=== PATIENT | female | born 1950 | race Caucasian/White ===

== ENCOUNTER → 2018-03-01 10:17 | Outpatient (CLI) | payer MEDICARE, OTHER, SELFPAY ==
[2017-03-14 11:32] VITALS: BMI 34.2
[2018-03-01 12:26] LABS: AST(SGOT) 20 U/L (15-37); Alanine Aminotransfer ALT/SGPT 28 U/L (13-56); Cholesterol 164 mg/dL (200); High Density Lipoprotein 39 mg/dL; T4 Total, Thyroxin 11.7 ug/dL (4.8-13.9); Thyroid Stim Hormone (TSH) 0.88 uIU/mL (0.358-3.74); Triglycerides 152 mg/dL; Very Low Density Lipoprotein 30 mg/dL (5-40)
[2018-03-06 09:35] LABS: ALB/GLOB Ratio 0.9 RATIO (0.9-2.4); Albumin, Serum 3.5 g/dL (3.2-5.0); Alkaline Phosphatase 116 U/L (45-117); Anion Gap 8 (5-15); BUN 19 mg/dL (7-18); BUN/Creat Ratio 23.7 RATIO (10-20); Chloride 105 mmol/L (98-107); EST Glomerular Filtration Rate 76 mL/min (>60); Est Glom Filt Rate - Afr Amer 92 mL/min (>60); Globulin 3.9 g/dL (2.2-4.2); Glucose 84 mg/dL (74-106); Potassium 4.3 mmol/L (3.5-5.1); Protein, Total 7.4 g/dL (6.4-8.2); Sodium Level 143 mmol/L (136-145)
--- OUTSIDE RECORDS SUMMARY | 2018-05-06 04:57 | XMS RPT_ITS ---
:1950 Author Organization [facility] Care Team Providers Name Role Phone Jolie Norman Attending Unavailable Jolie Norman Primary Care Unavailable Lucian Perez Attending Unavailable Jolie Norman Referring Unavailable Jolie Norman Primary Care Unavailable PROBLEMS PROBLEMS DATE TYPE CONDITION / CODE ATTENDING STATUS SOURCE 03/14/2017 Unknown I49.1 - Atrial Moodispajoey, Lucian Active [place] [facility] depolarization / Hospital I49.1(ICD-10) Repository 03/14/2017 Unknown I49.3 - Ventricular Moodispaw, Lucian Active [place] premature [facility] depolarization / Hospital I49.3(ICD-10) Repository 03/14/2017 Unknown E78.5 - Moodispaw, Lucian Active [place] Hyperlipidemia, Community unspecified / Hospital E78.5(ICD-10) Repository 03/14/2017 Unknown I10 - Essential Moodispaw, Lucian Active [place] (primary) Community hypertension / Hospital I10(ICD-10) Repository PROCEDURES PROCEDURES No Procedure Records FoundRESULTS RESULTS LIPID PROFILE Collected: 03/01/2018 Status: F Source: [place] 10:18 AM [facility] REPOSITORY Order Comment: ADD ON BMP FROM 03/01/18 TYPE CODE TESTS RESULT OUT OF RANGE REFERENCE UNITS LAB L501.4900 200 mg/dL Normal CHOL 164 Result Comment: <200 mg/dL Desirable 200-240 mg/dL Borderline >240 mg/dL High Risk LAB L501.5000 mg/dL Normal TRIG 152 Result Comment: The drugs N-Acetylcysteine and Metamizole may falsely depress this assay. Serum Triglycerides Reference Interval Normal <150 mg/dL Borderline high 150 - 199 mg/dL High 200 - 499 mg/dL Very High > or = 500 mg/dL LAB L501.6400 mg/dL Low HDL 39 Result Comment: The drugs N-Acetylcysteine and Metamizole may falsely depress this assay. Reference Range HDL <40 mg/dL Low HDL Cholesterol HDL >or= 60 mg/dL High HDL Cholesterol LAB L501.6500 0-130 mg/dL Normal LDL 95 LAB L501.6600 5-40 mg/dL Normal VLDL 30 Performed By: #### L500.4100, L501.4100, L501.4405, L501.9310, L501.9520, L500.4050 #### [facility] [address] [place], [address] AST(SGOT) Collected: 03/01/2018 Status: F Source: [place] 10:18 AM [facility] [place] TYPE CODE TESTS RESULT OUT OF RANGE REFERENCE UNITS LAB L501.4100 15-37 U/L Normal AST 20 Performed By: #### L500.4100, L501.4100, L501.4405, L501.9310, L501.9520, L500.4050 #### [facility] [address] [place], [place], [address] ALANINE AMINOTRANSFERAS Collected: 03/01/2018 Status: F Source: [place] (SGPT) 10:18 AM [facility] [place] TYPE CODE TESTS RESULT OUT OF RANGE REFERENCE UNITS LAB L501.4405 13-56 U/L Normal ALT 28 Performed By: #### L500.4100, L501.4100, L501.4405, L501.9310, L501.9520, L500.4050 #### [facility] [address] [place], [address] T4 TOTAL, THYROXIN Collected: 03/01/2018 Status: F Source: [place] 10:18 AM [facility] [place] Order Comment: ADD ON BMP FROM 03/01/18 TYPE CODE TESTS RESULT OUT OF RANGE REFERENCE UNITS LAB L501.9310 4.8-13.9 ug/dL T4 Normal THYROXIN 11.7 Performed By: #### L500.4100, L501.4100, L501.4405, L501.9310, L501.9520, L500.4050 #### [facility] [address] [place], [address] THYROID STIM HORMONE Collected: 03/01/2018 Status: F Source: [place] (TSH) 10:18 AM [facility] [place] Order Comment: ADD ON BMP FROM 03/01/18 TYPE CODE TESTS RESULT OUT OF RANGE REFERENCE UNITS LAB L501.9520 0.358-3.74 uIU/mL Normal TSH 0.88 Performed By: #### L500.4100, L501.4100, L501.4405, L501.9310, L501.9520, L500.4050 #### [facility] [address] [place], [address] COMPREHENSIVE METABOLIC Collected: 03/01/2018 Status: F Source: [place] PROFIL 10:18 AM [facility] [place] Order Comment: ADD ON BMP FROM 03/01/18 TYPE CODE TESTS RESULT OUT OF RANGE REFERENCE UNITS LAB L501.4100 15-37 U/L Normal AST 20 LAB L501.4405 13-56 U/L Normal ALT 28 LAB L501.0100 74-106 mg/dL Normal GLU 84 Result Comment: Please note revised GLUCOSE reference range effective 2017. LAB L501.1000 7-18 mg/dL High BUN 19 LAB L501.1100 0.55-1.02 mg/dL Normal CREAT,SERUM 0.80 Result Comment: The validity of the calculated GFR AND GFRAA in patients over 70 years has not been determined. Clinical correlation is essential. LAB L501.1110 >60 mL/min Normal EST GFR 76 Result Comment: Non- GFR Calc LAB L501.1115 >60 mL/min Normal EST GFR - AA 92 Result Comment: GFR Calc LAB L501.1300 10-20 RATIO High BUN/CRE 23.7 LAB L501.1500 6.4-8.2 g/dL T Normal PROT 7.4 LAB L501.1800 3.2-5.0 g/dL Normal ALB 3.5 LAB L501.1950 2.2-4.2 g/dL Normal GLOB 3.9 LAB L501.2000 0.9-2.4 RATIO Normal A/G 0.9 LAB L501.2200 8.5-10.1 mg/dL CA Normal 9.0 LAB L501.4305 45-117 U/L Normal ALK P 116 LAB L501.4600 0.20-1.00 mg/dL T Normal BILI 0.40 LAB L501.5300 136-145 mmol/L NA Normal 143 LAB L501.5600 3.5-5.1 mmol/L K Normal 4.3 LAB L501.5900 98-107 mmol/L CL Normal 105 LAB L501.6100 21.0-32.0 mmol/L Normal CO2 30.0 LAB L501.6200 5-15 Normal GAP 8 Performed By: #### L500.4100, L501.4100, L501.4405, L501.9310, L501.9520, L500.4050 #### [facility] [address] [place], [place], [address] CARDIOLOGY VISIT Observed: 03/14/2017 Status: F Source: [place] REPORT 11:59 AM [facility] [place] [facility] [address] [place] [address] OFFICE VISIT Date of Service: 03/14/17 MR#: [id number] Acct: [id number] Name: CELESTINA SERRANO Rep #: [id number] : 1950 Provider: Lucian Perez MD Age/Sex: 66/F [place] [facility] [place]: Signed HPI 1 Y FU: Details: CELESTINA SERRANO, is a 66 F who presents to the office today for for outpatient cardiovascular follow-up of her history of underlying PACs and PVCs superimposed on hyperlipidemia and hypertension. She notes since her visit of approximately 03/11/2016 she has been doing well. She has not complained of ongoing palpitations or rapid rates. She has had no episodes of near syncope or syncope. At the same time she remains active. She states she cares for her brother who undergoes hemodialysis. She has had no concerns of symptoms suspicious for angina pectoris and there has been no episodes compatible CHF or pulmonary edema. She did have her lipids checked recently. Overall they appear to be under good control. As you recall she had a transthoracic echocardiogram on 12/31/2008. At that time the left ventricle was normal with an LVEF of 60% with mild left atrial enlargement and mild MR and trivial TR and an estimated RV systolic pressure 22 mmHg. She had a stress test performed on 07/29/2008. According to the stress test (stress echocardiogram) this was considered negative for evidence of stress-induced ischemia. She also had a Holter monitor performed on 11/20/2008 which was performed by her PCP. At that time she had sinus tachycardia with a port of 3 beat run of SVT and occasional PVCs. She states overall she has done well on her medical management. Intake Vital Signs03/14/17 Height 5 ft 03/14/17 Weight: 175 lb 3 oz 03/14/17 Body Mass Index (BMI) 34.2 03/14/17 Blood Pressure 138/60 Intake Visit Reasons: 1 Y FU Allergies NKDA Allergy (Uncoded 03/14/17 11:32) NKDA Medications amlodipine 5 mg tablet 5 mg PO QDAY 03/08/17 [History Confirmed 03/10/17] aspirin 81 mg tablet,delayed release 81 mg PO QDAY 03/08/17 [History Confirmed 03/10/17] cholecalciferol (vitamin D3) 2,000 unit tablet 2,000 unit PO QDAY tab 03/08/17 [History Confirmed 03/10/17] levothyroxine 88 mcg tablet 88 mcg PO QDAY tab 03/08/17 [History Confirmed 03/10/17] lisinopril 40 mg tablet 40 mg PO QDAY 03/08/17 [History Confirmed 03/10/17] metoprolol succinate ER 100 mg tablet,extended release 24 hr 100 mg PO QDAY tab 03/08/17 [History Confirmed 03/10/17] omeprazole 20 mg capsule,delayed release 20 mg PO QDAY PRN 03/08/17 [History Confirmed 03/10/17] pravastatin 40 mg tablet 40 mg PO QHS 03/08/17 [History Confirmed 03/10/17] Ejection fraction %: 60 to 64 [facility] Medical History Hyperlipidemia (Acute) Hypertension (Chronic) Dizziness and giddiness (Acute) Tachycardia (Acute) Chest pain, precordial (Acute) Premature atrial contractions (Acute) Premature ventricular contraction (Acute) Palpitations (Acute) Fatigue (Acute) Family history of CVA (Acute) Family history of hypertension (Acute) Hypothyroidism (Acute) IBS (irritable bowel syndrome) (Acute) Family History Mother CVA (cerebral vascular accident) Brother Hypertension Social History Smoking Status: Never smoker alcohol intake: never ROS Const Const: Negative for fatigue, weakness, weight gain, weight loss, frequent falls or excessive sweating Eyes Eyes: Negative for change in vision, blurry vision or transient loss of vision ENT ENT: Negative for dizziness, Negative for balance problems Cardio Chest Pain: No Palpitations: Positive for No Edema: None Muscle aches with walking: None Resp Respiratory: Negative for SOB with activity or SOB at rest GI GI: Negative vomiting or vomiting blood/hematemesis : Negative for hematuria Musc Musc: Negative for balance problems, muscle aches/ myalgia, muscle weakness or joint pain Skin Skin: Negative non-healing lesions or rash Neuro Neuro: Negative for weakness, Negative for blurry vision, Negative for dizziness, Negative for lightheadedness, Negative for frequent falls, Negative for orthostatic symptoms Jamal Hematologic/Lymphatic: Negative for easy bleeding Endo Endo: Negative for fatigue or excessive sweating Psych Psych: Negative for anxiety or depression Allergy Allergy/Immunology: Negative for hives, Negative for rash Cardiology Exam Const Appearance: cooperative, healthy appearing, comfortable, no acute distress, well developed and well groomed Nutritional Appearance: overweight Orientation: alert, awake and oriented x3 Head Head: normal to inspection, normocephalic and atraumatic Ears: hearing grossly normal bilaterally Nose: external nose normal Face and Sinus: face symmetric Mouth: oral mucosae normal Teeth and gingiva: dentition normal Eyes General: appearance normal, both eyes and all related structures Eyelids: eyelids normal Conjunctivae: conjunctivae normal Pupils: PERRL EOM: EOM intact bilaterally Neck Neck: normal visual inspection and full ROM Carotids: normal carotid upstroke Chest Chest inspection: normal inspection of the chest and symmetric chest movement Auscultation: Bilateral: Clear to Auscultation Cardio Palpation: normal PMI Rate: regular rate Rhythm: regular rhythm Heart sounds: S1 normal and S2 normal GI GI: normal to inspection, soft, no hepatosplenomegaly and bowel sounds present Neuro General: alert, awake and oriented x3 Skin Skin: no rashes or lesions noted Extremities Pulses: Normal: Right Femoral Pulse, Left Femoral Pulse, Right Radial Pulse, Left Radial Pulse Lower Extremity Edema: None: Bilateral Psych Psychological: normal affect Assessment AND Plan 1. Premature atrial beat I49.1 Plan She appears to be doing well at this time with respect to her underlying ectopy. She will notify the office of any concerns. 2. Premature ventricular beat I49.3 Plan She appears be doing well with respect to her underlying ventricular ectopy. Again she will notify the office of any concerns. Otherwise she will continue her medical therapy with respect to her beta-blockers. 3. Hyperlipidemia, unspecified hyperlipidemia type E78.5 Plan Her lipid history was reviewed. She appears to be doing reasonably well. She will continue medical management and follow-up. 4. Essential hypertension I10 Plan Overall her blood pressure appears to be under reasonably good control. She will continue her current medical therapy and follow-up. Plan Detail Additional Comments She will be scheduled for an outpatient visit in approximately 1 year unless needed sooner. Thank you for allowing me to participate in the care of your patient. Please don't hesitate to call if any issues arise. This note was generated using a voice recognition system and there may be incorrect words, spelling or punctuation that were not noted when reviewing the office note prior to saving. Follow Up 1 Year ([facility]) Coding Level of Care Code Off vis,est,level 3 Diagnoses Premature atrial beat I49.1 Premature ventricular beat I49.3 Hyperlipidemia, unspecified hyperlipidemia type E78.5 Hyperlipidemia type: unspecified Essential hypertension I10 Hypertension type: essential hypertension 03/14/17 1159 <Electronically signed by Lucian Perez MD> Date Lucian Perez MD Cosigner Signature: Date (if applicable) CC: Jolie Norman MD ALLERGIES ALLERGIES DATE TYPE / CODE NAME / REACTION SEVERITY SOURCE CODE 03/14/2017 Miscellaneous NKDA NKDA Unknown [place] Allergy/[id number]([facility]) Hospital Repository ENCOUNTERS ENCOUNTERS ADMIT/DISCHARGE ACCOUNT ADMITTING ENCOUNTER LOCATION SOURCE NUMBER CLASS 03/01/2018 [id number] Ambulatory [place] 8 [facility] ing:MFPLAB Repository 03/14/2017/ [id number] Ambulatory BMSBuilding:B [place] 8 8 [facility] Repository PAYERS PAYERS ENCOUNTER GUARANTOR PAYER SUBSCRIBER SOURCE 03/01/2018 CELESTINA M Primary CELESTINA M [place] [id number] Insurance:MEDICARE MOWRERDOB: [facility] [place] PART A [facility] [id number] Number: Repository [id number]: [phone] [id number] [phone] () Date:2018-03-01 03/01/2018 Secondary CELESTINA M [place] Insurance:MUTUAL OF MOWRERDOB: [facility] Number: [id number] [id number] Repository Date:[id number] [address]JH: 03/01/2018 Tertiary NOT GIVENUNK [place] Insurance:SELF PAY [facility] Number: Effective Repository Date:2018-03-01 03/14/2017 CELESTINA Peterson Primary CELESTINA M [place] [id number] Insurance:MEDICARE MOWRERDOB: [facility] PART A [facility] [id number] Number: Repository [id number]: [phone] [id number] [phone] () Date:2017-01-22 03/14/2017 Secondary CELESTINA M [place] Insurance:MUTUAL OF MOWRERDOB: [facility] Number: [id number] [id number] Repository Date:[id number], [place] [address]AY: 03/14/2017 Tertiary NOT GIVENUNK [place] Insurance:SELF PAY [facility] Number: Effective Repository Date:2017-01-22
== END ==
PROVIDERS: Family Provider Family Medicine; PCP Family Medicine; Visit Provider Family Medicine
DX: I10 Essential (primary) hypertension (principal); E78.00 Pure hypercholesterolemia, unspecified; E03.9 Hypothyroidism, unspecified
CPT/HCPCS: 36415; 80053; 80061; 84436; 84443; 84450; 84460

== ENCOUNTER → 2018-03-27 10:39 | Outpatient (CLI) | payer MEDICARE, OTHER, SELFPAY ==
[2018-03-15 13:37] VITALS: BMI 34.5
--- NOTE | 2018-03-27 10:44 | BI_ITS ---
MAMMOGRAPHY - BILATERAL SCREENING REASON FOR EXAM: Female, 67 years old. Routine annual screening examination. PERTINENT HISTORY: Grandmother with breast cancer. Aunt with breast cancer. Chronic bilateral breast discharge. TECHNIQUE: Digital bilateral breast rojas (3D mammographic acquisition) in the CC and MLO projections. 2-D mediolateral oblique (MLO) and craniocaudad (CC) views of both breasts were obtained. CAD: Full Field Digital Mammography with Computer Added Detection was performed. COMPARISON: Comparison is made with prior study dated February 23, 2017 and January 26, 2016. FINDINGS: Breast Composition: The breasts are heterogeneously dense, which may obscure small masses. There are no dominant masses or suspicious calcifications. Stable small bilateral axillary lymph nodes. No other significant abnormalities are identified. There has been no significant change since the prior study. BI/SCREENING MAMM (CAD), BILAT IMPRESSION: Stable bilateral screening mammogram. Yearly follow-up mammogram recommended. (A) ASSESSMENT CATEGORY: BIRADS Category 2: Benign. A letter regarding these results will be sent to the patient by the facility within 30 days. Approximately 10% of breast cancers are not detected by mammography. A normal mammogram should not delay biopsy of a clinically suspicious abnormality. [id number] Electronically Signed: Rodrigo Lemus MD at 12:55 EST , Service support ,
== END ==
PROVIDERS: Family Provider Family Medicine; PCP Family Medicine; Visit Provider Family Medicine
DX: Z12.31 Encounter for screening mammogram for malignant neoplasm of breast (principal)
CPT/HCPCS: 77063; 77067

== ENCOUNTER → 2018-11-06 12:18 | Outpatient (CLI) | payer MEDICARE, OTHER, SELFPAY ==
[2018-03-15 13:37] VITALS: BMI 34.5
--- NOTE | 2018-11-06 12:20 | STEWCON_ITS ---
Reason For Study: CHEST PAIN ON EXERTION Stress Results Protocol: Ej Protocol WITH DEFINITY Maximum Predicted HR: 153 bpm Target HR: 130 bpm % Maximum Predicted HR: 95 % DurationHeart Rate Stage (mm:ss) (bpm) BP Comment BASELINE 71 144/741 CC DEFINITY STAGE 1 3:00 129 138/82 STAGE 2 2:00 146 / 2 CC DEFINITY RECOVERY 95 140/801 CC DEFINITY Stress Duration: 5:00 mm:ss Maximum Stress HR: 146 bpm METS: 7 Baseline Echocardiogram Findings Stress Echo Wall motion Data Resting WM Intermediate WM Stress WM Resting Wall Motion Wall Motion Stress Anterio-Basal: Normal. All segments Hyperkinetic. Lateral-Basal: Normal. Ejection Fraction 65 %. Posterior-Basal: Normal. Infero-Basal: Hypokinetic. Basal inferoseptal: Normal. Basal anteroseptal: Normal. Mid-Anterior : Normal. Mid-Lateral : Normal. Mid-Posterior: Normal. Mid-Inferior: Hypokinetic. Mid-inferoseptal : Normal. Mid-anteroseptal : Normal. Anterior [place] : Normal. Inferior [place] : Normal. Lateral [place] : Normal. Septall [place] : Normal. Ejection Fraction 55 %. Stress Results Heart rate response: Appropriate Blood pressure response: Resting hypertension-appropriate response Arrhythmias: Rare PVC during exercise Functional capacity: Average Stopped secondary to: Fatigue. EKG Data The baseline ECG displays normal sinus rhythm. Exercise ECG: No obvious ECG changes. Symptoms with Stress No complaint of chest discomfort during exercise or recovery. Interpretation Summary Technically difficult study Contrast injection performed Based upon the real-time and digital acquired 2D echocardiographic and contrast enhanced images at rest and status post stress there is the appearance of hypokinesis of the basal inferior and mid inferior segments at rest which status post stress appeared to improve, thus, being potentially compatible with an area of previous myocardial injury with subsequent findings compatible with myocardial viability, although, false positive resting regional wall motion abnormalities based upon the technically difficult study cannot necessarily be excluded. Ordering Physician: Jolie Norman M.D. Referring Physician: Jolie Norman Performed By: Cielo Friedman, MEAGAN, RVT
== END ==
PROVIDERS: Family Provider Family Medicine; PCP Family Medicine; Referring Provider Family Medicine; Visit Provider Family Medicine
DX: R07.9 Chest pain, unspecified (principal)
CPT/HCPCS: 93017; 93350; Q9957; A4216; C8928

== ENCOUNTER 2018-11-28 09:54 | Day surgery (SDC) | payer MEDICARE, OTHER, SELFPAY ==
[2018-03-15 13:37] VITALS: BMI 34.5
[2018-11-14 14:13] VITALS: BMI 34.2
--- NOTE | 2018-11-14 15:21 | RAD_ITS ---
STUDY: X-RAY CHEST REASON FOR EXAM: Female, 68 years old. Chest pain TECHNIQUE: PA and lateral COMPARISON: None. FINDINGS: The lungs are clear and expanded. There is no demonstrated pleural abnormality. Normal size heart. Normal mediastinum and kris. Normal visualized pulmonary arteries. Normal visualized aortic arch and descending thoracic aorta. Dorsal spine demonstrates mild spondylosis. Normal visualized ribs, clavicles, and shoulders. There is no demonstrated abnormality of the visualized soft tissue structures of the upper abdomen. RAD/Chest PA and Lateral IMPRESSION: No acute cardiopulmonary pathology Electronically Signed: Koko Hook MD at 22:09 EDT , Service support ,
[2018-11-14 16:28] LABS: Hematocrit 41.2 % (37-47); Hemoglobin 12.4 g/dL (12.0-15.0); Mean Corp Hgb Conc 30.1 g/dL (32-36); Mean Corpuscular Volume 89.6 fL (81-99); Mean Platelet Vol. 9.8 fl (6.2-12.0); Platelet Count 395 K/mm3 (150-450); RBC Distribution Width SD 49.3 fl (35.1-43.9); White Blood Count 10.5 K/mm3 (4.4-11.0)
[2018-11-14 16:43] LABS: International Normalized Ratio 1.1; Prothrombin Time (Protime)PT. 14.3 SECONDS (11.7-14.9)
[2018-11-14 16:44] LABS: Partial Thromboplast Time 30.8 Seconds (24.1-36.2)
[2018-11-14 16:51] LABS: Anion Gap 8 (5-15); BUN 21 mg/dL (7-18); BUN/Creat Ratio 19.8 RATIO (10-20); Calcium,Total 9.2 mg/dL (8.5-10.1); Chloride 109 mmol/L (98-107); Creatinine, Serum 1.06 mg/dL (0.55-1.02); EST Glomerular Filtration Rate 55 mL/min (>60); Est Glom Filt Rate - Afr Amer 66 mL/min (>60); Glucose 96 mg/dL (74-106); Potassium 3.8 mmol/L (3.5-5.1); Sodium Level 145 mmol/L (136-145)
[2018-11-27 09:29] VITALS: BMI 34.2
--- NOTE | 2018-11-28 07:56 | HP.PCM_ITS ---
Problem List (1) Abnormal stress echocardiogram Status: Acute (2) Chest pain, precordial Status: Resolved (3) Premature atrial contractions Status: Chronic (4) Premature ventricular contraction Status: Chronic (5) Hyperlipidemia Status: Chronic Qualifiers: (6) Essential hypertension Status: Chronic (7) Dizziness and giddiness Status: Acute (8) Fatigue Status: Acute History and Physical Date of Admission: 11/28/18 [facility] [address] [place] [address] OFFICE VISIT Date of Service: 11/14/18 MR#: [id number] Acct: [id number] Name: CELESTINA SERRANO Rep #: [id number] : 1950 Provider: Nadia Sanchez Age/Sex: 68/F Location: [facility] [place] Status: Signed HPI HPI History of Present Illness Details: This is a 68-year-old female that presents here today for an updated history and physical for an upcoming heart catheterization for an abnormal stress test. Patient was last seen in our office in February 2018. She does have a history of palpitations, hyperlipidemia and hypertension. Stress echocardiogram in October 2018 demonstrated rest and status post stress there is the appearance of hypokinesis of the basal inferior and mid inferior segments at rest which status post stress appeared to improve, thus, being potentially compatible with an area of previous myocardial injury with subsequent findings compatible with myocardial viability, although, false positive resting regional wall motion abnormalities based upon the technically difficult study cannot necessarily be excluded. Patient's stress test was ordered by her primary care doctor for dizziness. She states that she was extremely diz[place] and [place]ig[place] She does not have any chest discomfort. She does not have any worsening shortness of breath. She does not have any palpitations. She does not have any lower extremity edema. She is very anxious over this test. 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 Is patient in pain?: No Allergies No Known Allergies Allergy (Verified 11/14/18 14:14) Medications amlodipine 5 mg tablet 5 mg PO QDAY 03/08/17 [History Confirmed 11/14/18] aspirin 81 mg tablet,delayed release 81 mg PO QDAY 03/08/17 [History Confirmed 11/14/18] cholecalciferol (vitamin D3) 2,000 unit tablet 2,000 unit PO QDAY tab 03/08/17 [History Confirmed 11/14/18] levothyroxine 88 mcg tablet 88 mcg PO QDAY tab 03/08/17 [History Confirmed 11/14/18] lisinopril 40 mg tablet 40 mg PO QDAY 03/08/17 [History Confirmed 11/14/18] metoprolol succinate ER 100 mg tablet,extended release 24 hr 100 mg PO QDAY tab 03/08/17 [History Confirmed 11/14/18] pravastatin 40 mg tablet 40 mg PO QHS #90 tab 03/08/18 [Rx Confirmed 11/14/18] omeprazole 20 mg capsule,delayed release 20 mg PO QDAY 03/15/18 [History Confirmed 11/14/18] clopidogrel 75 mg tablet 75 mg PO DAILY #30 tab 11/14/18 [Rx Confirmed 11/14/18] [facility] Medical History (Updated 11/14/18 @ 15:07 by KELIN Lopez) Essential hypertension (Chronic) Hyperlipidemia (Chronic) Dizziness and giddiness (Resolved) Tachycardia (Resolved) Chest pain, precordial (Resolved) Premature atrial contractions (Chronic) Premature ventricular contraction (Chronic) Palpitations (Resolved) Fatigue (Resolved) Hypothyroidism (Chronic) IBS (irritable bowel syndrome) (Chronic) Family history of CVA (Resolved) Family history of hypertension (Resolved) Family History Mother CVA (cerebral vascular accident) Brother Hypertension Social History (Updated 11/14/18 @ 15:09 by KELIN Lopez) Smoking Status: Never smoker alcohol intake: never ROS Const Const: Negative for fatigue, weakness, fever(s) or headache(s) Eyes Eyes: Negative for blind spots, loss of peripheral vision or transient loss of vision ENT ENT: Negative for headache(s), dizziness, tinnitus or Nosebleed/epistaxis Cardio Chest Pain: No Palpitations: No Edema: None Muscle aches with walking: None Resp Respiratory: Negative for SOB with activity, SOB at rest, SOB orthopnea\SOB lying down or Cough GI GI: Negative nausea, vomiting, heartburn or vomiting blood/hematemesis : Negative for hematuria Musc Musc: Negative for muscle aches/ myalgia Neuro Neuro: Negative for dizziness, lightheadedness, near syncope, syncope, orthostatic symptoms, headache(s) or weakness Jamal Hematologic/Lymphatic: Negative for easy bleeding Endo Endo: Negative for fatigue Cardiology Exam Const Appearance: cooperative, healthy appearing, comfortable, no acute distress, well developed and well groomed Nutritional Appearance: overweight Orientation: alert, awake and oriented x3 Head Head: normal to inspection, normocephalic and atraumatic Ears: hearing grossly normal bilaterally Nose: external nose normal Face and Sinus: face symmetric Mouth: oral mucosae normal Teeth and gingiva: dentition normal Eyes General: appearance normal, both eyes and all related structures Eyelids: eyelids normal Conjunctivae: conjunctivae normal Pupils: PERRL EOM: EOM intact bilaterally Neck Neck: normal visual inspection and full ROM Carotids: normal carotid upstroke Chest Chest inspection: normal inspection of the chest and symmetric chest movement Auscultation: Bilateral: Clear to Auscultation Cardio Palpation: normal PMI Rate: regular rate Rhythm: regular rhythm and ectopic beats Heart sounds: S1 normal and S2 normal GI GI: normal to inspection, soft, no hepatosplenomegaly and bowel sounds present Neuro General: alert, awake and oriented x3 Skin Skin: no rashes or lesions noted Extremities Pulses: Normal: Right Femoral Pulse, Left Femoral Pulse, Right Radial Pulse, Left Radial Pulse Lower Extremity Edema: None: Bilateral Psych Psychological: normal affect Assessment & Plan 1. Abnormal stress echocardiogram R94.39 Plan With abnormal stress echocardiogram would like to proceed with a diagnostic heart catheterization. Patient is agreeable to proceed with this procedure. It is scheduled with Dr. Perez on November 28, 2018. 2. Essential hypertension I10 Plan Blood pressure is well controlled on current medications, we do not recommend any changes at this time. 3. Hyperlipidemia, unspecified hyperlipidemia type E78.5 Plan Imaged by primary care doctor. Recent lipid profile demonstrates total cholesterol 164, HDL 39, LDL 95. We will continue with current medical management. 4. Palpitations R00.2 Plan Patient has not had any further symptoms of palpitations. We will continue to monitor. Plan Detail Other Medications New: clopidogrel for Cardiac Cath 75 mg PO DAILY 30 tabs 2RF Additional Comments Thank you for allowing us to participate in patient's plan of care, if you have any questions please do not hesitate to call. This note was generated using a voice recognition system and there may be incorrect words, spelling or punctuation errors that were not noted when reviewing the office note prior to saving. Follow Up 11/14/18 (keep as is) Coding Level of Care Code Off vis,est,level 4 Diagnoses Abnormal stress echocardiogram R94.39 Essential hypertension I10 Hyperlipidemia, unspecified hyperlipidemia type E78.5 ??Hyperlipidemia type: unspecified Palpitations R00.2 Coding Level of Care Code Off vis,est,level 4 Diagnoses Abnormal stress echocardiogram R94.39 Essential hypertension I10 Hyperlipidemia, unspecified hyperlipidemia type E78.5 ??Hyperlipidemia type: unspecified Palpitations R00.2 Supplemental Info Supplemental Information Labs LDL Cholesterol 95 mg/dL (0-130) 03/01/18 HDL Cholesterol 39 mg/dL (40-) L 03/01/18 Triglycerides 152 mg/dL (-199) 03/01/18 VLDL Cholesterol 30 mg/dL (5-40) 03/01/18 Diagnostics Stress Echocardiogram 11/06/18 11/14/18 [id number] <Electronically signed by Nadia Harden> Date _ Nadia NEVILLE I have re-examined the patient. There are no clinical changes since date of exam.
--- NOTE | 2018-11-28 12:04 | CL.D_ITS ---
Patient Name: CELESTINA SERRANO Study Date: 11/28/2018 Performing: Lucian Perez MD Ht: 59.84 inches 152 cm : 1950 Wt: 169.69 lbs 76.97 kg Age: 68 Gender: female BSA: 1.74 PROCEDURE(S) PERFORMED [id number]/LV CLINICAL PROFILE AND INDICATIONS Indications: Suspected CAD Heart Failure: None Stress/Imaging Date: 11/06/2018Stress Echocardiogram: Positive Angina Classification Anginal Classification w/in 2 Weeks: No symptoms CAD Presentations: Other: Palpitations CONCLUSIONS Elevated Left Ventricular End Diastolic Pressure Normal LV size, wall motion,and systolic function LVEF: by LV gram 60 % Normal coronary arteries RECOMMENDATIONS Risk factor modification Medical therapy DESCRIPTION OF PROCEDURE The patient arrived to the procedure lab. The risks and benefits of the procedure as well as a full d escription of our services here and current unavailability of surgical backup were fully explained to the patient and/or their significant other prior to the catheterization. The Timeout was completed, verifying the correct patient and procedure. The patient's procedural site was prepped and draped in the usual fashion. Local anesthetic was given subcutaneously to right radial region with Lidocaine 2% . Using a modified Seldinger technique, arterial access was obtained via the right radial artery, a 6 Fr sheath was inserted. Right Coronary Artery selective angiography was performed in multiple views using a 5 Fr. 4.0 Matthews catheter. Left Coronary Artery selective angiography was performed in multipl e views using a 5 Fr. 4.0 Matthews catheter. Left Ventriculography was performed in RITTER projection using a 5 Fr. Pigtail catheter. LV to AO pullback pressures were then recorded.The arterial sheath was pulled and a TR Band was applied for hemostasis CORONARY ANGIOGRAPHY DOMINANCE: Right Dominant LEFT HEART ASSESSMENT Left Ventricular Ejection Fraction: by LV Gram 60 % Normal LV wall motion Elevated Left Ventricular End Diastolic Pressure LVEDP: 23 mmHg LEFT MAIN: Angiographically normal LEFT ANTERIOR DESCENDING ARTERY: Angiographically normal CIRCUMFLEX ARTERY: Angiographically normal RIGHT CORONARY ARTERY: Angiographically normal VALVE FINDINGS: Normal Aortic Valve function Normal Mitral Valve function AORTIC ROOT: Angiographically normal COMPLICATIONS No Complications PROCEDURE MEDICATIONS Fentanyl 50 mcg IV Versed 1 mg IV Fentanyl 50 mcg IV Versed 1 mg IV Oxygen: 2 L/min via nasal cannula Heparin diluted in 23cc Heparinized saline. Patient given 10cc IA of this solution. 11/28/2018 11:23 :05 Verapamil 2.5mg, Ntg 100mcgs, 2000 units of Heparin diluted in 23cc Heparinized saline. Patient give n 10cc IA of this solution. 11/28/2018 11:23:05 SUMMARY OF HEMODYNAMIC DATA Time AIR REST ECG 10:14:30 AO 146/74 (107) SA 11:25:34 LV 166/5, 33 11:48:26 LV 166/6, 23 11:48:32 LV 175/-10, 30 11:49:29 LV 173/-11, 30 11:49:35 LVp 176/-12, 24 11:49:42 AOp 169/70 (115) 11:49:47 Signed By Luican Perez MD On 11/28/2018 12:03:02 Lucian Perez MD
== END 2018-11-28 13:50 | disposition home or self-care (01) ==
LOC: CLSP 09:56
PROVIDERS: Family Provider Family Medicine; PCP Family Medicine; Referring Provider Internal Medicine Cardiovascular Disease; Visit Provider Internal Medicine Cardiovascular Disease
DX: R94.39 Abnormal result of other cardiovascular function study (principal); R07.2 Precordial pain; R00.2 Palpitations; I49.1 Atrial premature depolarization; I49.3 Ventricular premature depolarization; I10 Essential (primary) hypertension; E78.5 Hyperlipidemia, unspecified; E03.9 Hypothyroidism, unspecified; K58.9 Irritable bowel syndrome, unspecified; Z79.02 Long term (current) use of antithrombotics/antiplatelets; Z79.82 Long term (current) use of aspirin; Z79.899 Other long term (current) drug therapy
CPT/HCPCS: 36415; 71046; 80048; 85027; 85610; 85730; 93458; 99152; 99153; J7040; Q9967; C1769; C1894

== ENCOUNTER → 2019-03-09 10:29 | Outpatient (CLI) | payer MEDICARE, OTHER, SELFPAY ==
[2018-11-27 09:29] VITALS: BMI 34.2
[2019-03-09 13:03] LABS: Vitamin D,25 Hydroxy 61.6 ng/mL (29.95-100.01)
[2019-03-09 13:05] LABS: AST(SGOT) 28 U/L (15-37); Alanine Aminotransfer ALT/SGPT 36 U/L (13-56); Anion Gap 5 (5-15); BUN 20 mg/dL (7-18); BUN/Creat Ratio 22.7 RATIO (10-20); Calcium,Total 9.2 mg/dL (8.5-10.1); Chloride 107 mmol/L (98-107); Cholesterol 189 mg/dL (200); Creatinine, Serum 0.88 mg/dL (0.55-1.02); EST Glomerular Filtration Rate 68 mL/min (>60); Est Glom Filt Rate - Afr Amer 82 mL/min (>60); Glucose 83 mg/dL (74-106); High Density Lipoprotein 40 mg/dL; Potassium 4.1 mmol/L (3.5-5.1); Sodium Level 142 mmol/L (136-145); T4 Total, Thyroxin 13.2 ug/dL (4.8-13.9); Thyroid Stim Hormone (TSH) 0.82 uIU/mL (0.358-3.74); Triglycerides 163 mg/dL; Very Low Density Lipoprotein 33 mg/dL (5-40)
== END ==
PROVIDERS: PCP Family Medicine; Referring Provider Family Medicine; Visit Provider Family Medicine
DX: I10 Essential (primary) hypertension (principal); E03.9 Hypothyroidism, unspecified; E78.00 Pure hypercholesterolemia, unspecified; E56.9 Vitamin deficiency, unspecified
CPT/HCPCS: 36415; 80048; 80061; 82306; 84436; 84443; 84450; 84460

== ENCOUNTER → 2019-03-28 10:40 | Outpatient (CLI) | payer MEDICARE, OTHER, SELFPAY ==
[2018-11-27 09:29] VITALS: BMI 34.2
[2019-03-21 14:22] VITALS: BMI 34.8
--- NOTE | 2019-03-28 10:43 | BI_ITS ---
MAMMOGRAPHY - BILATERAL SCREENING REASON FOR EXAM: Female, 68 years old. Routine annual screening examination. PERTINENT HISTORY: Grandmother with breast cancer. Aunt with breast cancer. TECHNIQUE: Digital bilateral breast yoli (3D mammographic acquisition) in the CC and MLO projections. 2-D mediolateral oblique (MLO) and craniocaudad (CC) views of both breasts were obtained. CAD: Full Field Digital Mammography with Computer Added Detection was performed. COMPARISON: Comparison is made with prior study dated March 27, 2018 and February 23, 2007. FINDINGS: Breast Composition: The breasts are heterogeneously dense, which may obscure small masses. There are no dominant masses or suspicious calcifications. Stable benign-appearing bilateral axillary lymph nodes. No other significant abnormalities are identified. There has been no significant change since the prior study. BI/SCREEN MAMM (CAD) W/YOLI BILAT IMPRESSION: Stable bilateral screening mammogram. Yearly follow-up mammogram recommended. (A) ASSESSMENT CATEGORY: BIRADS Category 2: Benign. A letter regarding these results will be sent to the patient by the facility within 30 days. Approximately 10% of breast cancers are not detected by mammography. A normal mammogram should not delay biopsy of a clinically suspicious abnormality. [id number] Electronically Signed: Rodrigo Lemus, at 12:16 EST , Service support ,
--- NOTE | 2019-03-28 11:12 | BD_ITS ---
STUDY: DUAL ENERGY X-RAY ABSORPTIOMETRY / DXA REASON FOR EXAM: Female, 68 years old. ACCOUNT DEVELOPMENT MANAGER -- TAKES SYNTHROID -- TAKES VITAMIN D -- DOES MODERATE AMOUNT OF EXERCISE -- FAMILY HX OF OSTEO- MOTHER -- ERGIS OF 0.75 INCH TECHNIQUE: Bone Mineral Density (BMD) measurements of lumbar spine and bilateral hips were obtained. COMPARISON: Comparison is made with prior examination dated December 23, 2015. FINDINGS: Lumbar Spine (L1-L4): g/cm2 (1.293) / T-score (0.9) / Z-score (2.6) Findings are suggestive of normal bone density with a low fracture risk. Left Femur Total: g/cm2 (0.992) / T-score (-0.1) / Z-score (1.2) Left Femoral Neck: g/cm2 (0.889) / T-score (-1.1) / Z-score (0.5) Right Femur Total: g/cm2 (0.998) / T-score (-0.1) / Z-score (1.3) Right Femoral Neck: g/cm2 (0.908) / T-score (-0.9) / Z-score (0.7) The T-Scores on the most recent prior examination were: Lumbar Spine (L1-L4): There has been improvement of bone density since the previous examination. Left Femur Total: which represents an improvement of 0.1%. Right Femur Total: which represents a worsening of 1.1%. BD/Dexa Bone Density Study IMPRESSION: The patient is considered osteopenic as outlined below according to World Frederick Organization (WHO) criteria with a low fracture risk. There has been improvement of bone density since the previous examination. Reference Information: The T-score is the number of standard deviations above or below the standard which is normal for young adults at their peak bone mineral density. The World Health Organization (WHO) interprets the T-scores as follows: Above -1 Normal bone density Between -1 and -2.5 Osteopenia Equal to / or below -2.5 Osteoporosis As a practical clinical guideline, osteopenia may be graded as follows: Mild -1 through -1.5 Moderate -1.6 through -2.0 Severe -2.1 through -2.4 The Z-score is the number of standard deviations above or below age-matched controls. A Z-score of less than -1.5 would be considered abnormal. References: 1. NIH Osteoporosis and Related Bone Diseases http://www.osteo.org 2. International Society for Clinical Densitometry http://www.iscd.org 3. National Osteoporosis Foundation http://www.nof.org Electronically Signed: Rodrigo Lemus, at 15:17 EST , Service support ,
== END ==
PROVIDERS: Family Provider Family Medicine; PCP Family Medicine; Referring Provider Family Medicine; Visit Provider Family Medicine
DX: Z00.00 Encounter for general adult medical examination without abnormal findings (principal); Z12.31 Encounter for screening mammogram for malignant neoplasm of breast; N95.9 Unspecified menopausal and perimenopausal disorder
CPT/HCPCS: 77063; 77067; 77080

== ENCOUNTER → 2020-03-11 13:53 | Outpatient (CLI) | payer MEDICARE, OTHER, SELFPAY ==
[2019-09-24 10:09] VITALS: BMI 35.5
[2020-03-11 15:43] LABS: Hematocrit 43.4 % (37-47); Hemoglobin 12.9 g/dL (12.0-15.0); Mean Corp Hgb Conc 29.7 g/dL (32-36); Mean Corpuscular Hgb 26.7 pg (27.0-32.0); Mean Corpuscular Volume 89.9 fL (81-99); Mean Platelet Vol. 9.7 fl (6.2-12.0); Platelet Count 488 K/mm3 (150-450); RBC Distribution Width CV 14.9 % (11.6-14.6); RBC Distribution Width SD 49.2 fl (35.1-43.9); Red Blood Count 4.83 M/mm3 (4.2-5.4); White Blood Count 10.2 K/mm3 (4.4-11.0)
[2020-03-11 16:12] LABS: ALB/GLOB Ratio 0.8 RATIO (0.9-2.4); AST(SGOT) 21 U/L (15-37); Albumin, Serum 3.6 g/dL (3.2-5.0); Alkaline Phosphatase 131 U/L (45-117); Anion Gap 5 (5-15); BUN 19 mg/dL (7-18); BUN/Creat Ratio 21.3 RATIO (10-20); Calcium,Total 9.5 mg/dL (8.5-10.1); Chloride 106 mmol/L (98-107); Cholesterol 199 mg/dL (200); Creatinine, Serum 0.89 mg/dL (0.55-1.02); EST Glomerular Filtration Rate 67 mL/min (>60); Est Glom Filt Rate - Afr Amer 81 mL/min (>60); Globulin 4.8 g/dL (2.2-4.2); Glucose 87 mg/dL (74-106); High Density Lipoprotein 45 mg/dL; Potassium 4.1 mmol/L (3.5-5.1); Protein, Total 8.4 g/dL (6.4-8.2); Sodium Level 141 mmol/L (136-145); Thyroid Stim Hormone (TSH) 0.63 uIU/mL (0.358-3.74); Triglycerides 181 mg/dL; Very Low Density Lipoprotein 36 mg/dL (5-40)
[2020-03-11 16:18] LABS: Hemoglobin A1c 5.8 % (3.8-5.6)
== END ==
PROVIDERS: PCP Family Medicine; Visit Provider Registered Nurse
DX: Z00.00 Encounter for general adult medical examination without abnormal findings (principal); I10 Essential (primary) hypertension; R94.39 Abnormal result of other cardiovascular function study; R07.2 Precordial pain; I49.3 Ventricular premature depolarization; I49.1 Atrial premature depolarization; Z79.899 Other long term (current) drug therapy
CPT/HCPCS: 36415; 80053; 80061; 83036; 84443; 85027

== ENCOUNTER → 2020-04-11 11:40 | Outpatient (CLI) | payer MEDICARE, OTHER, SELFPAY ==
[2019-09-24 10:09] VITALS: BMI 35.5
--- NOTE | 2020-04-11 11:43 | BI_ITS ---
MAMMOGRAPHY - BILATERAL SCREENING REASON FOR EXAM: Female, 69 years old. Routine annual screening examination. PERTINENT HISTORY: Non-contributory. TECHNIQUE: Digital bilateral breast yoli (3D mammographic acquisition) in the CC and MLO projections. 2-D mediolateral oblique (MLO) and craniocaudad (CC) views of both breasts were obtained. CAD: Full Field Digital Mammography with Computer Added Detection was performed. COMPARISON: Comparison is made with prior study dated 03/28/2019 and 03/27/2018. FINDINGS: Breast Composition: The breasts are heterogeneously dense, which may obscure small masses. There are no dominant masses or suspicious calcifications. No other significant abnormalities are identified. There has been no significant change since the prior study. BI/SCRN MAMM (CAD)W/YOLI BILAT IMPRESSION: Stable bilateral screening mammogram. Yearly follow-up mammogram recommended. (A) ASSESSMENT CATEGORY: BIRADS Category 1: Negative. A letter regarding these results will be sent to the patient by the facility within 30 days. Approximately 10% of breast cancers are not detected by mammography. A normal mammogram should not delay biopsy of a clinically suspicious abnormality. [id number] Electronically Signed: Rodrigo Lemus MD at 14:13 EST , Service support ,
== END ==
PROVIDERS: PCP Family Medicine; Referring Provider Registered Nurse; Visit Provider Registered Nurse
DX: Z12.31 Encounter for screening mammogram for malignant neoplasm of breast (principal)
CPT/HCPCS: 77063; 77067

== ENCOUNTER → 2020-12-29 09:46 | Outpatient (CLI) | payer MEDICARE, OTHER, SELFPAY ==
[2020-12-29 12:29] LABS: AST(SGOT) 20 U/L (15-37); Alanine Aminotransfer ALT/SGPT 26 U/L (13-56); Anion Gap 4 (5-15); BUN 20 mg/dL (7-18); BUN/Creat Ratio 23.9 RATIO (10-20); Calcium,Total 9.5 mg/dL (8.5-10.1); Chloride 108 mmol/L (98-107); Creatinine, Serum 0.84 mg/dL (0.55-1.02); EST Glomerular Filtration Rate 72 mL/min (>60); Est Glom Filt Rate - Afr Amer 87 mL/min (>60); Glucose 83 mg/dL (74-106); Potassium 4.3 mmol/L (3.5-5.1); Sodium Level 141 mmol/L (136-145); T4 Total, Thyroxin 11.9 ug/dL (4.8-13.9); Thyroid Stim Hormone (TSH) 0.93 uIU/mL (0.358-3.74)
[2020-12-29 12:39] LABS: Microalbumin:Creatinine Ratio 84.2 mg/g CRE (<30 mg/g CRE)
[2020-12-31 16:30] LABS: Cholesterol 189 mg/dL (200); High Density Lipoprotein 41 mg/dL; Triglycerides 208 mg/dL; Very Low Density Lipoprotein 42 mg/dL (5-40)
== END ==
PROVIDERS: PCP Family Medicine; Referring Provider Family Medicine; Visit Provider Family Medicine
DX: I10 Essential (primary) hypertension (principal); E78.00 Pure hypercholesterolemia, unspecified; E03.9 Hypothyroidism, unspecified
CPT/HCPCS: 36415; 80048; 80061; 82043; 82570; 84436; 84443; 84450; 84460

== ENCOUNTER 2021-04-13 10:33 | Outpatient (CLI) | payer MEDICARE, OTHER, SELFPAY ==
--- NOTE | 2021-04-13 10:38 | BI_ITS ---
MAMMOGRAPHY - BILATERAL SCREENING REASON FOR EXAM: Female, 70 years old. Routine annual screening examination. PERTINENT HISTORY: Grandmother with breast cancer. Aunt with breast cancer. History of chronic bilateral nipple discharge. TECHNIQUE: Digital bilateral breast yoli (3D mammographic acquisition) in the CC and MLO projections. 2-D mediolateral oblique (MLO) and craniocaudad (CC) views of both breasts were obtained. CAD: Full Field Digital Mammography with Computer Added Detection was performed. COMPARISON: Comparison is made with prior study dated 04/11/2020 and 03/28/2019. FINDINGS: Breast Composition: There are scattered areas of fibroglandular density. There are no dominant masses or suspicious calcifications. Stable benign-appearing bilateral axillary lymph nodes. No other significant abnormalities are identified. There has been no significant change since the prior study. BI/SCRN MAMM (CAD)W/YOLI BILAT IMPRESSION: Stable bilateral screening mammogram. Yearly follow-up mammogram recommended. (A) ASSESSMENT CATEGORY: BIRADS Category 2: Benign. A letter regarding these results will be sent to the patient by the facility within 30 days. Approximately 10% of breast cancers are not detected by mammography. A normal mammogram should not delay biopsy of a clinically suspicious abnormality. [id number] Electronically Signed: Rodrigo Lemus MD at 13:25 EST ,
== END 2021-04-13 23:59 | disposition home or self-care (01) ==
LOC: OPBI 10:35
PROVIDERS: PCP Family Medicine; Visit Provider Family Medicine
DX: Z12.31 Encounter for screening mammogram for malignant neoplasm of breast (principal); Z80.3 Family history of malignant neoplasm of breast
CPT/HCPCS: 77063; 77067

== ENCOUNTER → 2021-12-22 | Outpatient (CLI) | payer MEDICARE, OTHER, SELFPAY ==
[2021-12-22 12:49] LABS: AST(SGOT) 21 U/L (15-37); Alanine Aminotransfer ALT/SGPT 28 U/L (13-56); Anion Gap 5 (5-15); BUN 18 mg/dL (7-18); BUN/Creat Ratio 20.8 RATIO (10-20); Calcium,Total 9.3 mg/dL (8.5-10.1); Chloride 105 mmol/L (98-107); Cholesterol 172 mg/dL (200); Creatinine, Serum 0.86 mg/dL (0.55-1.02); EST Glomerular Filtration Rate 69 mL/min (>60); Est Glom Filt Rate - Afr Amer 83 mL/min (>60); Glucose 89 mg/dL (74-106); High Density Lipoprotein 42 mg/dL; Potassium 4.2 mmol/L (3.5-5.1); Sodium Level 139 mmol/L (136-145); T4 Total, Thyroxin 12.6 ug/dL (4.8-13.9); Thyroid Stim Hormone (TSH) 0.75 uIU/mL (0.358-3.74); Triglycerides 219 mg/dL; Very Low Density Lipoprotein 44 mg/dL (5-40)
[2021-12-22 13:09] LABS: Vitamin D,25 Hydroxy 71.1 ng/mL
== END | disposition home or self-care (01) ==
LOC: MFPLAB 10:19
PROVIDERS: PCP Family Medicine; Referring Provider Family Medicine; Visit Provider Family Medicine
DX: E03.9 Hypothyroidism, unspecified (principal); E55.9 Vitamin D deficiency, unspecified; I10 Essential (primary) hypertension; E78.00 Pure hypercholesterolemia, unspecified
CPT/HCPCS: 36415; 80048; 80061; 82306; 84436; 84443; 84450; 84460

== ENCOUNTER → 2022-04-15 | Outpatient (CLI) | payer MEDICARE, OTHER, SELFPAY ==
--- NOTE | 2022-04-15 10:17 | BI_ITS ---
MAMMOGRAPHY - BILATERAL SCREENING REASON FOR EXAM: Female, 71 years old. Routine annual screening examination. PERTINENT HISTORY: Grandmother with breast cancer. Aunt with breast cancer. TECHNIQUE: Digital bilateral breast yoli (3D mammographic acquisition) in the CC and MLO projections. 2-D mediolateral oblique (MLO) and craniocaudad (CC) views of both breasts were obtained. CAD: Full Field Digital Mammography with Computer Added Detection was performed. COMPARISON: Comparison is made with prior study dated April 13, 2021 and 09/08/2020. FINDINGS: Breast Composition: The breasts are heterogeneously dense, which may obscure small masses. There are no dominant masses or suspicious calcifications. Stable small benign-appearing bilateral axillary lymph nodes. No other significant abnormalities are identified. There has been no significant change since the prior study. BI/SCRN MAMM (CAD)W/YOLI BILAT IMPRESSION: Stable bilateral screening mammogram. Yearly follow-up mammogram recommended. (A) ASSESSMENT CATEGORY: BIRADS Category 2: Benign. A letter regarding these results will be sent to the patient by the facility within 30 days. Approximately 10% of breast cancers are not detected by mammography. A normal mammogram should not delay biopsy of a clinically suspicious abnormality. [id number] Electronically Signed: Rodrigo Lemus MD at 11:35 EST ,
== END | disposition home or self-care (01) ==
LOC: OPBI 10:14
PROVIDERS: PCP Family Medicine; Visit Provider Family Medicine
DX: Z12.31 Encounter for screening mammogram for malignant neoplasm of breast (principal)
CPT/HCPCS: 77063; 77067

== ENCOUNTER → 2022-12-28 | Outpatient (CLI) | payer MEDICARE, OTHER, SELFPAY ==
[2022-12-28 13:11] LABS: Vitamin D,25 Hydroxy 82.3 ng/mL
[2022-12-28 13:14] LABS: AST(SGOT) 19 U/L (15-37); Alanine Aminotransfer ALT/SGPT 30 U/L (13-56); Anion Gap 3 (5-15); BUN 21 mg/dL (7-18); BUN/Creat Ratio 23.2 RATIO (10-20); Calcium,Total 9.3 mg/dL (8.5-10.1); Chloride 106 mmol/L (98-107); Cholesterol 179 mg/dL (200); Creatinine, Serum 0.91 mg/dL (0.55-1.02); EST Glomerular Filtration Rate 65 mL/min (>60); Est Glom Filt Rate - Afr Amer 79 mL/min (>60); Glucose 87 mg/dL (74-106); High Density Lipoprotein 44 mg/dL; Sodium Level 140 mmol/L (136-145); T4 Total, Thyroxin 13.5 ug/dL (4.8-13.9); Triglycerides 195 mg/dL; Very Low Density Lipoprotein 39 mg/dL (5-40)
== END | disposition home or self-care (01) ==
LOC: MFPLAB 10:50
PROVIDERS: PCP Family Medicine; Visit Provider Family Medicine
DX: I10 Essential (primary) hypertension (principal); E78.00 Pure hypercholesterolemia, unspecified; E03.9 Hypothyroidism, unspecified; E56.9 Vitamin deficiency, unspecified
CPT/HCPCS: 36415; 80048; 80061; 82306; 84436; 84443; 84450; 84460

== ENCOUNTER → 2023-05-09 | Outpatient (CLI) | payer MEDICARE, OTHER, SELFPAY ==
--- NOTE | 2023-05-09 10:42 | BI_ITS ---
MAMMOGRAPHY - BILATERAL SCREENING REASON FOR EXAM: Female, 72 years old. Routine annual screening examination. PERTINENT HISTORY: Grandmother with breast cancer. Aunt with breast cancer. Chronic history of occasional bilateral nipple discharge. TECHNIQUE: Digital bilateral breast yoli (3D mammographic acquisition) in the CC and MLO projections. 2-D mediolateral oblique (MLO) and craniocaudad (CC) views of both breasts were obtained. CAD: Full Field Digital Mammography with Computer Added Detection was performed. COMPARISON: Comparison is made with prior study April 15, 2022 and April 13, 2021. FINDINGS: Breast Composition: The breasts are heterogeneously dense, which may obscure small masses. There are no dominant masses or suspicious calcifications. Stable small benign-appearing bilateral axillary lymph nodes. No other significant abnormalities are identified. There has been no significant change since the prior study. BI/SCRN MAMM (CAD)W/YOLI BILAT IMPRESSION: Stable bilateral screening mammogram. Yearly follow-up mammogram recommended. (A) ASSESSMENT CATEGORY: BIRADS Category 2: Benign. A letter regarding these results will be sent to the patient by the facility within 30 days. Approximately 10% of breast cancers are not detected by mammography. A normal mammogram should not delay biopsy of a clinically suspicious abnormality. [id number] Electronically Signed: Rodrigo Lemus MD at 12:27 EDT ,
== END | disposition home or self-care (01) ==
LOC: OPBI 10:42
PROVIDERS: PCP Family Medicine; Referring Provider Family Medicine; Visit Provider Family Medicine
DX: Z12.31 Encounter for screening mammogram for malignant neoplasm of breast (principal)
CPT/HCPCS: 77063; 77067

== ENCOUNTER → 2023-07-05 | Outpatient (CLI) | payer MEDICARE, OTHER, SELFPAY ==
[2023-07-05 16:09] LABS: Protein, Urine (Random) 13.7 mg/dL (<11.9); Protein:Creat Ratio 105 mg/g CRE (0-200)
[2023-07-05 16:22] LABS: AST(SGOT) 20 U/L (15-37); Alanine Aminotransfer ALT/SGPT 26 U/L (13-56); Anion Gap 6 (5-15); BUN 22 mg/dL (7-18); BUN/Creat Ratio 26.1 RATIO (10-20); Calcium,Total 9.4 mg/dL (8.5-10.1); Chloride 107 mmol/L (98-107); Cholesterol 180 mg/dL (200); Creatinine, Serum 0.84 mg/dL (0.55-1.02); EST Glomerular Filtration Rate 71 mL/min (>60); Est Glom Filt Rate - Afr Amer 85 mL/min (>60); Glucose 88 mg/dL (74-106); High Density Lipoprotein 39 mg/dL; Potassium 4.2 mmol/L (3.5-5.1); Sodium Level 140 mmol/L (136-145); T4 Total, Thyroxin 10.8 ug/dL (4.8-13.9); Thyroid Stim Hormone (TSH) 0.56 uIU/mL (0.358-3.74); Triglycerides 179 mg/dL; Very Low Density Lipoprotein 36 mg/dL (5-40)
== END | disposition home or self-care (01) ==
LOC: MFPLAB 11:31
PROVIDERS: PCP Family Medicine; Visit Provider Family Medicine
DX: I10 Essential (primary) hypertension (principal); E78.00 Pure hypercholesterolemia, unspecified; E03.9 Hypothyroidism, unspecified
CPT/HCPCS: 36415; 80048; 80061; 82570; 84156; 84436; 84443; 84450; 84460

== ENCOUNTER → 2024-05-09 | Outpatient (CLI) | payer MEDICARE, OTHER, SELFPAY ==
--- NOTE | 2024-05-09 09:45 | BI_ITS ---
EXAM: SCRN MAMM (CAD)W/YOLI BILAT 05/09/2024 CLINICAL HISTORY: F, Age 73 y/o , SCREENING BREAST CANCER RISK ASSESSMENT: Has not been calculated. TECHNIQUE: Bilateral screening digital breast tomosynthesis with 2D images. Computer aided detection. COMPARISON: Prior exam(s) dated 05/09/2023 and 04/15/2022. FINDINGS: TISSUE DENSITY: The breast tissue is composed of scattered area of fibroglandular density. Bilateral Breast Mammographic Findings: There are no other dominant masses, areas of architectural distortion, or suspicious calcifications. Benign-appearing round microcalcifications are seen in both breasts. A stable 3 mm well-circumscribed isodense masses seen in the inferior medial aspect of the right breast. BI/SCRN MAMM (CAD)W/YOLI BILAT IMPRESSION: Right Breast: BIRADS 2 BENIGN FINDING. Left Breast: BIRADS 2 BENIGN FINDING. OVERALL FINAL ASSESSMENT: BIRADS 2 BENIGN FINDING RECOMMENDATION: Routine annual follow-up in 1 Year A letter with findings and recommendations will be mailed to the patient. Reading Location: [id number]
== END | disposition home or self-care (01) ==
LOC: OPBI 09:15
PROVIDERS: PCP Family Medicine; Referring Provider Family Medicine; Visit Provider Family Medicine
DX: Z12.31 Encounter for screening mammogram for malignant neoplasm of breast (principal)
CPT/HCPCS: 77063; 77067

== ENCOUNTER → 2024-05-23 | Outpatient (CLI) | payer MEDICARE, OTHER, SELFPAY ==
--- NOTE | 2024-05-23 06:46 | ECHOD_ITS ---
Reason For Study Reason For Study: LOCALIZED EDEMA Procedure This was a 2D Doppler, Color Flow transthoracic echocardiogram. Exam performed in department. Left Ventricle Normal size and thickness. Apical false tendon noted. The left ventricular ejection fraction is 65 %. Normal diastology for age. Right Ventricle Normal right ventricle. Atria The left and right atria are normal. Mitral Valve Mild mitral annular calcification. Mild (1+) mitral valve insufficiency. Tricuspid Valve Trivial tricuspid valve insufficiency. Normal pulmonary artery pressure. Aortic Valve Trisinus/trileaflet aortic valve. Mild diffuse aortic valve thickening. Trivial aortic valve insufficiency. Pulmonic Valve The pulmonic valve is not well visualized. Trivial pulmonic valve insufficiency. Great Vessels Normal sized aortic root. Pericardium/Pleural No pericardial effusion. MMode/2D Measurements & Calculations LVIDd: 4.4 cm IVSd: 0.94 cm Ao root diam: 2.7 cm LVIDs: 3.0 cm LVPWd: 0.95 cm RVDd: 2.8 cm FS: 32.0 % LAV(MOD-bp): 55.1 ml LVAd ap4: 24.8 cm2 LVAd ap2: 19.2 cm2 LAV(MOD-bp) Indexed: 30.3 ml/m2 LVLd ap4: 6.9 cm LVLd ap2: 6.7 cm LAV(MOD-sp2): 46.4 ml EDV(MOD-sp4): 74.4 ml EDV(MOD-sp2): 47.5 ml LAV(MOD-sp4): 59.7 ml EDV(sp4-el): 75.3 ml EDV(sp2-el): 46.7 ml LVAs ap4: 13.0 cm2 LVAs ap2: 10.6 cm2 LVLs ap4: 5.5 cm LVLs ap2: 5.4 cm ESV(MOD-sp4): 27.4 ml ESV(MOD-sp2): 17.5 ml ESV(sp4-el): 26.2 ml ESV(sp2-el): 17.5 ml EF(MOD-sp4): 63.1 % EF(MOD-sp2): 63.3 % EF(sp4-el): 65.2 % SV(MOD-sp4): 47.0 ml SV(MOD-sp2): 30.1 ml SV(sp4-el): 49.0 ml SI(MOD-sp4): 25.9 ml/m2 SI(MOD-sp2): 16.6 ml/m2 LA A4 area: 19.4 cm2 LA dimension(2D): 3.6 cm RA A4 area: 12.7 cm2 TAPSE: 2.2 cm Time Measurements MV dec time: 0.14 sec Doppler Measurements & Calculations MV E max roel: 73.9 cm/sec Lat Peak E' Roel: 8.0 cm/sec Med Peak E' Roel: 8.7 cm/sec MV A max roel: 87.7 cm/sec E/E' lat: 9.3 E/E' med: 8.5 MV E/A: 0.84 MV V2 max: 93.8 cm/sec MV P1/2t max roel: 77.0 cm/sec Ao V2 max: 113.9 cm/sec MV max P.5 mmHg MV P1/2t: 39.0 msec Ao max P.2 mmHg MV V2 mean: 59.8 cm/sec Ao V2 mean: 73.8 cm/sec MV mean P.6 mmHg MV dec slope: 578.7 cm/sec2 Ao mean P.4 mmHg MV V2 VTI: 17.2 cm MVA(P1/2t): 5.6 cm2 Ao V2 VTI: 24.6 cm AV (velocity ratio): 0.70 LV V1 max: 67.5 cm/sec PA V2 max: 104.8 cm/sec TR max roel: 226.4 cm/sec LV V1 max P.8 mmHg PA V2 mean: 68.3 cm/sec TR max P.5 mmHg LV V1 mean P.98 mmHg LV V1 mean: 47.3 cm/sec LV V1 VTI: 17.1 cm ECHO/Echo Complete Interpretation Summary The left ventricular ejection fraction is 65 %. Mild mitral annular calcification. Mild (1+) mitral valve insufficiency. Ordering Physician: Donald Cid Referring Physician: Jolie Norman Performed By: Hansa Zendejas, MEAGAN, RVT
== END | disposition home or self-care (01) ==
LOC: CVS 06:46
PROVIDERS: PCP Family Medicine; Referring Provider Internal Medicine Cardiovascular Disease; Visit Provider Internal Medicine Cardiovascular Disease
DX: R60.0 Localized edema (principal); R94.39 Abnormal result of other cardiovascular function study; R42 Dizziness and giddiness; R53.83 Other fatigue; R00.2 Palpitations
CPT/HCPCS: 93306

== ENCOUNTER → 2024-05-25 | Outpatient (CLI) | payer MEDICARE, OTHER, SELFPAY ==
[2024-05-25 13:24] LABS: Anion Gap 13 (5-15); BUN 22 mg/dL (4-19); Carbon Dioxide 26.9 mmol/L (21.0-32.0); Chloride 103 mmol/L (98-108); Creatinine, Serum 0.94 mg/dL (0.70-1.20); EST Glomerular Filtration Rate 64 (>60); Glucose 102 mg/dL (70-99); Potassium 4.1 mmol/L (3.3-5.1); Sodium Level 143 mmol/L (133-145)
== END | disposition home or self-care (01) ==
LOC: LAB 11:51
PROVIDERS: PCP Family Medicine; Referring Provider Internal Medicine Cardiovascular Disease; Visit Provider Internal Medicine Cardiovascular Disease
DX: R53.83 Other fatigue (principal); R42 Dizziness and giddiness
CPT/HCPCS: 36415; 80048

== ENCOUNTER → 2024-06-07 | Outpatient (CLI) | payer MEDICARE, OTHER, SELFPAY ==
[2024-06-07 10:32] LABS: Free T3 2.9 pg/mL (2.18-3.98); T4 Total, Thyroxin 10.3 ug/dL (4.8-13.9); Thyroid Stim Hormone (TSH) 0.214 uIU/mL (0.300-4.200)
== END | disposition home or self-care (01) ==
LOC: LAB 08:40
PROVIDERS: PCP Family Medicine; Referring Provider Nurse Practitioner Family; Visit Provider Nurse Practitioner Family
DX: I10 Essential (primary) hypertension (principal); R00.2 Palpitations
CPT/HCPCS: 36415; 84436; 84443; 84481

== ENCOUNTER → 2024-08-07 | Outpatient (CLI) | payer MEDICARE, OTHER, SELFPAY ==
[2024-08-07 13:26] LABS: Free T3 2.7 pg/mL (2.18-3.98); Thyroid Stim Hormone (TSH) 0.722 uIU/mL (0.300-4.200)
--- OUTSIDE RECORDS SUMMARY | 2024-08-07 20:49 | XMS RPT_ITS | CCD ---
Author Organization [facility] Care Team Providers Care Skin Toggler Name Role Phone Dr. Jolie Norman Primary Care Provider Dr. Jolie Norman Referring Provider [phone] Lucian Perez Attending Provider Dr. Jolie Norman Primary Care Provider [phone] Jolie Norman Referring Provider [phone] [facility] HISTOLOGY SPECIALIST, HISTOLOGY SPECIALIST-Conner Hobbs Attending Provider Dr. Jolie Norman MD Primary Care Provider [phone] Dr. Jolie Norman MD Attending Provider Dr. Jolie Norman MD Referring Provider [phone] Hedy PIMENTEL, Dr. Bennett Attending Provider Dr. Donald Cid MD Referring Provider Jolliff Jolie Cesar Referring Unavailable Jolliff, Jolie S Primary Care Unavailable Hedy, Donald Attending Unavailable Hedy, Donald Attending Unavailable Jolliff, Jolie S Primary Care Unavailable Jolliff, Jolie S Referring Unavailable Jolliff, Jolie S Primary Care Unavailable Hedy, Donald Attending Unavailable Jolliff, Jolie S Primary Care Unavailable Jolliff, Jolie S Referring Unavailable Hedy, Donald Attending Unavailable Hedy, Donald Referring Unavailable Jolliff, Jolie S Primary Care Unavailable Hedy, Donald Attending Unavailable Malys, Courtney Attending Unavailable Malys, Courtney Referring Unavailable Jolliff, Jolie S Primary Care Unavailable Hedy, Donald Referring Unavailable Hedy, Donald Attending Unavailable Jolliff, Jolie S Primary Care Unavailable Jolliff, Jolie S Primary Care Unavailable Roof HISTOLOGY SPECIALIST, Anjel H Attending Unavailable Anjel Chance NP Referring Unavailable Jolie Norman Primary Care Unavailable Jolie Norman Attending Unavailable Jolie Norman Primary Care Unavailable Jolie Norman Attending Unavailable Jolie Norman Referring Unavailable Allergies Allergy Classification Reported Allergen(s) Allergy Type Date of Onset Reaction(s) Facility (4 sources) Environmental Allergies: Uncoded; Translations: [Environmental Allergies: Uncoded] Allergy to substance nasal drainage [facility] Medications Current Medications Medication Drug Class(es) Dates Sig (Normalized) Sig (Original) aspirin 81 mg delayed release oral tablet (7 sources) Platelet Aggregation Inhibitor, Nonsteroidal Anti-inflammatory Drug Start: 03-08-2017 Aspirin (Adult Low Dose Aspirin) 81 mg tablet,delayed release (DR/EC) Active 81 mg PO daily March 08, 2017 1:00am cholecalciferol 0.075 mg oral tablet (20 sources) Vitamin D Start: 08-31-2021 take 1 tablet by mouth once daily Cholecalciferol (Vitamin D3) 75 mcg (3,000 unit) tablet Active 75 ug PO DAILY August 31, 2021 12:00am Start: 03-21-2019 End: 08-31-2021 Cholecalciferol (Vitamin D3) 2,000 unit tablet Discontinued 3000 U PO daily March 21, 2019 3:23pm August 31, 2021 11:39am Start: 03-21-2019 End: 08-31-2021 take 3000 [IU] by mouth once daily Cholecalciferol (Vitamin D3) Discontinued 3000 UNIT PO daily March 21, 2019 3:23pm August 31, 2021 11:39am Start: 03-08-2017 End: 03-21-2019 take 1 tablet by mouth once daily Cholecalciferol (Vitamin D3) 2,000 unit tablet Discontinued 2000 U PO daily March 08, 2017 1:00am March 21, 2019 3:23pm hydroCHLOROthiazide 25 mg oral tablet (2 sources) Thiazide Diuretic Start: 05-15-2024 take 1 tablet by mouth once daily Hydrochlorothiazide 25 mg tablet Active 25 mg PO daily May 15, 2024 12:00am levothyroxine sodium 0.088 mg oral tablet (7 sources) l-Thyroxine Start: 03-08-2017 take 1 tablet by mouth once daily Levothyroxine (Synthroid) 88 mcg tablet Active 88 ug PO daily March 08, 2017 1:00am lisinopril 40 mg oral tablet (7 sources) Angiotensin Converting Enzyme Inhibitor Start: 03-08-2017 take 1 tablet by mouth once daily Lisinopril 40 mg tablet Active 40 mg PO daily March 08, 2017 1:00am 24 hr metoprolol succinate 100 mg extended release oral tablet (7 sources) beta-Adrenergic Carlos Start: 03-08-2017 take 1 tablet by mouth once daily Metoprolol Succinate 100 mg tablet extended release 24 hr Active 100 mg PO daily March 08, 2017 1:00am omeprazole 20 mg delayed release oral capsule (14 sources) Proton Pump Inhibitor Start: 03-08-2017 End: 03-15-2018 take 1 capsule by mouth once daily Omeprazole 20 mg capsule,delayed release(DR/EC) Active 20 mg PO daily March 15, 2018 2:38pm Completed/Discontinued Medications Medication Drug Class(es) Dates Sig (Normalized) Sig (Original) amLODIPine 10 mg oral tablet (14 sources) Dihydropyridine Calcium Channel Carlos Start: 08-22-2020 End: 05-15-2024 take 1 tablet by mouth once daily Amlodipine 10 mg tablet Discontinued 10 mg PO DAILY August 22, 2020 12:00am May 15, 2024 4:41pm Start: 03-08-2017 End: 08-22-2020 take 1 tablet by mouth once daily Amlodipine (Norvasc) 5 mg tablet Discontinued 5 mg PO daily March 08, 2017 1:00am August 22, 2020 3:08pm clopidogrel 75 mg oral tablet (14 sources) P2Y12 Platelet Inhibitor Start: 11-08-2018 End: 11-28-2018 take 1 tablet by mouth once daily Clopidogrel 75 mg tablet Discontinued 75 mg PO DAILY November 14, 2018 2:57pm November 28, 2018 4:29pm for Cardiac Cath ketoconazole 20 mg/ml topical cream (7 sources) Azole Antifungal Start: 03-08-2017 End: 03-14-2017 Ketoconazole 2 % cream Discontinued 1 NMA TOPICAL As Directed March 08, 2017 1:00am March 14, 2017 12:33pm Start: 03-08-2017 End: 03-14-2017 Ketoconazole Discontinued 1 APPLIC TOPICAL As Directed March 08, 2017 1:00am March 14, 2017 12:33pm pravastatin sodium 40 mg oral tablet (20 sources) HMG-CoA Reductase Inhibitor Start: 03-08-2017 End: 10-01-2019 take 1 tablet by mouth at bedtime Pravastatin 40 mg tablet Discontinued 40 mg PO AT BEDTIME 90 December 25, 2018 7:03pm October 01, 2019 11:07am Problems Problem Classification Problem Date Documented Date Episodic/Chronic Cardiac dysrhythmias (18 sources) Multiple premature ventricular complexes; Translations: [Ventricular premature depolarization] Chronic Cardiac dysrhythmias (17 sources) Palpitations; Translations: [Palpitations] Onset: 05-15-2024 11-14-2018 Episodic Conditions associated with dizziness or vertigo (7 sources) Dizziness and giddiness; Translations: [Dizziness and giddiness] 11-28-2018 Episodic Disorders of lipid metabolism (15 sources) Hyperlipidemia; Translations: [Hyperlipidemia, unspecified] Onset: 05-15-2024 Chronic Essential hypertension (12 sources) Essential hypertension; Translations: [Essential (primary) hypertension] Onset: 06-12-2024 Chronic Malaise and fatigue (8 sources) Fatigue; Translations: [Other fatigue] Onset: 05-30-2024 11-28-2018 Episodic Nonspecific chest pain (7 sources) Precordial pain; Translations: [Precordial pain] 11-14-2018 Episodic Other screening for suspected conditions (not mental disorders or infectious disease) (8 sources) Echocardiogram abnormal; Translations: [Abnormal result of other cardiovascular function study] Onset: 2024 11-08-2018 Episodic Residual codes; unclassified (4 sources) Bilateral lower limb edema; Translations: [Localized edema] 05-15-2024 Episodic Residual codes; unclassified (1 source) Localized edema; Translations: [Localized edema] Onset: 05-29-2024 Episodic Thyroid disorders (1 source) Hypothyroidism, unspecified; Translations: [Hypothyroidism, unspecified] Onset: 06-14-2024 Chronic Results Test Name Value Interpretation Reference Range Facility Free T3on 06-07-2024 Free T3 [Mass/Vol] 2.9 pg/mL Normal 2.18-3.98 [facility] Comment on above: Order Comment: Comme nts: Pt last TSH was 0.5 1 year ago. Pt last TSH was 0.5 1 year ago. Performed By: #### L 501.9520, L501.26048, L501.9310 #### [facility] [address] [place], [place], [id number] T4 Total, Thyroxinon T4 [Mass/Vol] 10.3 ug/dL Normal 4.8-13.9 [facility] Comment on above: Order Comment: Comme nts: Pt last TSH was 0.5 1 year ago. Performed By: #### L 501.9520, L501.97050, L501.9310 #### [facility] [address] [place], [address] Thyroid Stim Hormone (TSH)on 06-07-2024 TSH 0.214 uIU/mL Low 0.300-4.200 [facility] Comment on above: Order Comment: Comme nts: Pt last TSH was 0.5 1 year ago. Performed By: #### L 501.9520, L501.94073, L501.9310 #### [facility] [address] [place], [address] Anion gap in Serum or Plasma Ordered By: Donald Cid on 05-25-2024 Anion gap [Moles/Vol] 13 mmol/L -15 [facility] BUN/creatinine ratioOrdered By: Donald Cid on 05-25-2024 Urea nitrogen/Creatinine [Mass ratio] 23.0 mg/mg High - [facility] Basic Metabolic Profile (BMP )on 05-25-2024 BUN/CRE 23.0 RATIO High - [facility] Comment on above: Performed By: #### L 500.2500 #### [facility] [address] [place], [address] Calcium [Mass/Vol] 10.0 mg/dL Normal 7.6-11.0 [facility] Comment on above: Performed By: #### L 500.2500 #### [facility] [address] [place], [address] Chloride [Moles/Vol] 103 mmol/L Normal 98-108 [facility] Comment on above: Performed By: #### L 500.2500 #### [facility] [address] [place], [address] CO2 [Moles/Vol] 26.9 mmol/L Normal 21.0-32.0 [facility] Comment on above: Performed By: #### L 500.2500 #### [facility] [address] [place], [address] Creatinine [Mass/Vol] 0.94 mg/dL Normal 0.70-1.20 [facility] Comment on above: Performed By: #### L 500.2500 #### [facility] [address] [place], [address] GAP 13 Normal 5-15 [facility] Comment on above: Performed By: #### L 500.2500 #### [facility] [address] [place], [address] GFR/1.73 sq M.predicted among non-blacks MDRD (S/P/Bld) [Vol rate/Area] 64 mL/min/{1.73_m2} Normal >60 [facility] Comment on above: Result Comment: mL/m in/1.73m2 CKD-EPI Creatinine Equation (2020) Performed By: #### L 500.2500 #### [facility] [address] [place], [address] Glucose [Mass/Vol] 102 mg/dL High 70-99 [facility] Comment on above: Performed By: #### L 500.2500 #### [facility] [address] [place], [address] Potassium [Moles/Vol] 4.1 mmol/L Normal 3.3-5.1 [facility] Comment on above: Performed By: #### L [id number] #### [facility] [address] [place], [place], [address] Sodium [Moles/Vol] 143 mmol/L Normal 133-145 [facility] Comment on above: Performed By: #### L 500.2500 #### [facility] [address] [place], [address] Urea nitrogen [Mass/Vol] 22 mg/dL High 4-19 [facility] Comment on above: Performed By: #### L 500.2500 #### [facility] [address] [place] [place], [place], [address] Carbon dioxide, total [Moles /volume] in Central venous bloodOrdered By: Donald Cid on 05-25-2024 CO2 [Moles/Vol] 26.9 mmol/L 21.0-32.0 [facility] Chloride assayOrdered By: Monroe Cid on 05-25-2024 Chloride [Moles/Vol] 103 mmol/L 98-108 [facility] GFR/1.73 sq M.predicted roxane g non-blacks MDRD (S/P/Bld) [Vol rate/Area]Ordered By: Donald Cid on 05-25-2024 Estimated GFR (MDRD) Non-Af Amer 64 >60 [facility] Comment on above: mL/min/1.73m2 CKD-EP I Creatinine Equation (2020) Office Visit Reporton 2024 Office Visit Report [facility] [address] [place] [address] OFFICE VISIT Date of Service: 05/25/24 MR#: [id number] Acct: [id number] Patient: CELESTINA SERRANO Rep #: [id number] : 1950 Provider: Dr. Donald Cid MD Age/Sex: 74/F [place] [facility] [place]: Signed Intake Vital Signs 05/15/24 12:57 Height 4 ft 11 in Intake Visit Reasons: BLOOD PRESSURE (HEDY) Allergies Environmental Allergies: Uncoded (seasonal) Allergy (Mild, Verified 11/08/23 10:50) nasal drainage Have you fallen in the past year?: No Nursing Note Pt presents for BP check s/p OV BP results as follows: 1st: Left Brachial; Sitting; BP: 155/72 HR: 69 2nd: Right Brachial; Sitting; BP: 139/71 HR: 74 Pt reports palpitations at HS, reduction in swelling since stopping amlodipine and starting spironolactone. Pt reporting left leg cramping. Pt to obtain labs following BP check. Clinical Quality Measures Falls Risk Screening/Assistive Devices Have you fallen in the past year?: No 06/18/24 1403 Date Donald Cid MD Cosigner Signature: Date (if applicable) CC: Normal [facility] Potassium (Unsp spec) [Mass/ Vol]Ordered By: Donald Cid on 05-25-2024 Potassium [Moles/Vol] 4.1 mmol/L 3.3-5.1 [facility] Serum creatinine measurement (mass/volume)Ordered By: Donald Cid on 05-25-2024 Creatinine [Mass/Vol] 0.94 mg/dL 0.70-1.20 [facility] Serum glucose measurement (m ass/volume)Ordered By: Donald Cid on 05-25-2024 Glucose [Mass/Vol] 102 mg/dL High 70-99 [facility] Serum or plasma calcium hannah urement (mass/volume)Ordered By: Donald Cid on 05-25-2024 Calcium [Mass/Vol] 10.0 mg/dL 7.6-11.0 [facility] Serum or plasma urea nitroge n measurement (mass/volume)Ordered By: Donald Cid on 05-25-2024 Urea nitrogen [Mass/Vol] 22 mg/dL High 4-19 [facility] Sodium levelOrdered By: Marcelino Cid on 05-25-2024 Sodium [Moles/Vol] 143 mmol/L 133-145 [facility] Echo Completeon 05-23-2024 Echo Complete [facility] [address] [place] [address] Echo Complete 05/23/24 0659 MR#: [id number] Acct: [id number] Name: CELESTINA SERRANO Rep #: [id number] : 1950 74 From: Donald Cid MD Attending Dr: Dr. Donald Cid MD Status: REG CLI Ordering Dr: Donald Cid MD Date: 05/23/24 Location: [facility] Sex: F C Admitted: Reason For Study Reason For Study: LOCALIZED EDEMA Procedure This was a 2D Doppler, Color Flow transthoracic echocardiogram. Exam performed in department. Left Ventricle Normal size and thickness. Apical false tendon noted. The left ventricular ejection fraction is 65 %. Normal diastology for age. Right Ventricle Normal right ventricle. Atria The left and right atria are normal. Mitral Valve Mild mitral annular calcification. Mild (1+) mitral valve insufficiency. Tricuspid Valve Trivial tricuspid valve insufficiency. Normal pulmonary artery pressure. Aortic Valve Trisinus/trileaflet aortic valve. Mild diffuse aortic valve thickening. Trivial aortic valve insufficiency. Pulmonic Valve The pulmonic valve is not well visualized. Trivial pulmonic valve insufficiency. Great Vessels Normal sized aortic root. Pericardium/Pleural No pericardial effusion. MMode/2D Measurements Calculations LVIDd: 4.4 cm IVSd: 0.94 cm Ao root diam: 2.7 cm LVIDs: 3.0 cm LVPWd: 0.95 cm RVDd: 2.8 cm FS: 32.0 % LAV(MOD-bp): 55.1 ml LVAd ap4: 24.8 cm2 LVAd ap2: 19.2 cm2 LAV(MOD-bp) Indexed: 30.3 ml/m2 LVLd ap4: 6.9 cm LVLd ap2: 6.7 cm LAV(MOD-sp2): 46.4 ml EDV(MOD-sp4): 74.4 ml EDV(MOD-sp2): 47.5 ml LAV(MOD-sp4): 59.7 ml EDV(sp4-el): 75.3 ml EDV(sp2-el): 46.7 ml LVAs ap4: 13.0 cm2 LVAs ap2: 10.6 cm2 LVLs ap4: 5.5 cm LVLs ap2: 5.4 cm ESV(MOD-sp4): 27.4 ml ESV(MOD-sp2): 17.5 ml ESV(sp4-el): 26.2 ml ESV(sp2-el): 17.5 ml EF(MOD-sp4): 63.1 % EF(MOD-sp2): 63.3 % EF(sp4-el): 65.2 % SV(MOD-sp4): 47.0 ml SV(MOD-sp2): 30.1 ml SV(sp4-el): 49.0 ml SI(MOD-sp4): 25.9 ml/m2 SI(MOD-sp2): 16.6 ml/m2 LA A4 area: 19.4 cm2 LA dimension(2D): 3.6 cm RA A4 area: 12.7 cm2 TAPSE: 2.2 cm Time Measurements MV dec time: 0.14 sec Doppler Measurements Calculations MV E max roel: 73.9 cm/sec Lat Peak E' Roel: 8.0 cm/sec Med Peak E' Roel: 8.7 cm/sec MV A max roel: 87.7 cm/sec E/E' lat: 9.3 E/E' med: 8.5 MV E/A: 0.84 MV V2 max: 93.8 cm/sec MV P1/2t max roel: 77.0 cm/sec Ao V2 max: 113.9 cm/sec MV max P.5 mmHg MV P1/2t: 39.0 msec Ao max P.2 mmHg MV V2 mean: 59.8 cm/sec Ao V2 mean: 73.8 cm/sec MV mean P.6 mmHg MV dec slope: 578.7 cm/sec2 Ao mean P.4 mmHg MV V2 VTI: 17.2 cm MVA(P1/2t): 5.6 cm2 Ao V2 VTI: 24.6 cm AV (velocity ratio): 0.70 LV V1 max: 67.5 cm/sec PA V2 max: 104.8 cm/sec TR max roel: 226.4 cm/sec LV V1 max P.8 mmHg PA V2 mean: 68.3 cm/sec TR max P.5 mmHg LV V1 mean P.98 mmHg LV V1 mean: 47.3 cm/sec LV V1 VTI: 17.1 cm ECHO/Echo Complete Interpretation Summary The left ventricular ejection fraction is 65 %. Mild mitral annular calcification. Mild (1+) mitral valve insufficiency. Ordering Physician: Donald Cid Referring Physician: Jolie Norman Performed By: Hansa Zendejas RDCS, RVT 05/23/24834 Date Donald Cid MD CC: Dr. Jolie Norman MD; Dr. Donald Cid MD Date Dictated: 05/23/24658 Date Transcribed: 05/23/24834 Machine Operator Slitter Technician: Signed Normal [facility] Echocardiogram study reportO rdered By: Donald Cid on 05-23-2024 Study report [facility] [address] [place] [address] Echo Complete 05/23/24658 MR#: [id number] Acct: [id number] Name: CELESTINA SERRANO Rep #:[id number] : 1950 74 From: Donald Cid MD Attending Dr: Dr. Donald Cid MD Status: REG CLI Ordering Dr: Donald Cid MD Date: Location: [facility] Sex: F C Admitted: Reason For Study Reason For Study: LOCALIZED EDEMA Procedure This was a 2D Doppler, Color Flow transthoracic echocardiogram. Exam performed in department. Left Ventricle Normal size and thickness. Apical false tendon noted. The left ventricular ejection fraction is 65 %. Normal diastology for age. Right Ventricle Normal right ventricle. Atria The left and right atria are normal. Mitral Valve Mild mitral annular calcification. Mild (1+) mitral valve insufficiency. Tricuspid Valve Trivial tricuspid valve insufficiency. Normal pulmonary artery pressure. Aortic Valve Trisinus/trileaflet aortic valve. Mild diffuse aortic valve thickening. Trivial aortic valve insufficiency. Pulmonic Valve The pulmonic valve is not well visualized. Trivial pulmonic valve insufficiency. Great Vessels Normal sized aortic root. Pericardium/Pleural No pericardial effusion. MMode/2D Measurements & Calculations LVIDd: 4.4 cm IVSd: 0.94 cm Ao root diam: 2.7 cm LVIDs: 3.0 cm LVPWd: 0.95 cm RVDd: 2.8 cm FS: 32.0 % LAV(MOD-bp): 55.1 ml LVAd ap4: 24.8 cm2 LVAd ap2: 19.2 cm2 LAV(MOD-bp) Indexed: 30.3 ml/m2 LVLd ap4: 6.9 cm LVLd ap2: 6.7 cm LAV(MOD-sp2): 46.4 ml EDV(MOD-sp4): 74.4 ml EDV(MOD-sp2): 47.5 ml LAV(MOD-sp4): 59.7 ml EDV(sp4-el): 75.3 ml EDV(sp2-el): 46.7 ml LVAs ap4: 13.0 cm2 LVAs ap2: 10.6 cm2 LVLs ap4: 5.5 cm LVLs ap2: 5.4 cm ESV(MOD-sp4): 27.4 ml ESV(MOD-sp2): 17.5 ml ESV(sp4-el): 26.2 ml ESV(sp2-el): 17.5 ml EF(MOD-sp4): 63.1 % EF(MOD-sp2): 63.3 % EF(sp4-el): 65.2 % SV(MOD-sp4): 47.0 ml SV(MOD-sp2): 30.1 ml SV(sp4-el): 49.0 ml SI(MOD-sp4): 25.9 ml/m2 SI(MOD-sp2): 16.6 ml/m2 LA A4 area: 19.4 cm2 LA dimension(2D): 3.6 cm RA A4 area: 12.7 cm2 TAPSE: 2.2 cm Time Measurements MV dec time: 0.14 sec Doppler Measurements & Calculations MV E max roel: 73.9 cm/sec Lat Peak E' Roel: 8.0 cm/sec Med Peak E' Roel: 8.7 cm/sec MV A max roel: 87.7 cm/sec E/E' lat: 9.3 E/E' med: 8.5 MV E/A: 0.84 MV V2 max: 93.8 cm/sec MV P1/2t max roel: 77.0 cm/sec Ao V2 max: 113.9 cm/sec MV max P.5 mmHg MV P1/2t: 39.0 msec Ao max P.2 mmHg MV V2 mean: 59.8 cm/sec Ao V2 mean: 73.8 cm/sec MV mean P.6 mmHg MV dec slope: 578.7 cm/sec2 Ao mean P.4 mmHg MV V2 VTI: 17.2 cm MVA(P1/2t): 5.6 cm2 Ao V2 VTI: 24.6 cm AV (velocity ratio): 0.70 LV V1 max: 67.5 cm/sec PA V2 max: 104.8 cm/sec TR max roel: 226.4 cm/sec LV V1 max P.8 mmHg PA V2 mean: 68.3 cm/sec TR max P.5 mmHg LV V1 mean P.98 mmHg LV V1 mean: 47.3 cm/sec LV V1 VTI: 17.1 cm ECHO/Echo Complete Interpretation Summary The left ventricular ejection fraction is 65 %. Mild mitral annular calcification. Mild (1+) mitral valve insufficiency. Ordering Physician: Donald Cid Referring Physician: Jolie Norman Performed By: Hansa Zendejas, MEAGAN, RVT 05/23/24834 Date _ Donald Cid MD CC: Dr. Jolie Norman MD; Dr. Donald Cid MD ~ Date Dictated: 05/23/24658 Date Transcribed: 05/23/24834 Machine Operator Slitter Technician: Signed [facility] Work Phone: Cardiology Visit Reporton Cardiology Visit Report [facility] [address] [place] [address]. [address] [place] [address] OFFICE VISIT Date of Service: 05/15/24 MR#: [id number] Acct: [id number] Name: CELESTINA SERRANO Rep #: [id number] : 1950 Provider: Dr. Donald Cid MD Age/Sex: 74/F Location: [facility] [place] Status: Signed HPI HPI History of Present Illness Details: This lady with history of PACs, hypertension and dyslipidemia is here for follow-up visit. Denies any chest pains. No shortness of breath. Denies orthopnea or PND. She does however complain of ankle edema. Intake Vital Signs 11/08/23 10:45 05/15/24 12:57 Height 4 ft 11 in 4 ft 11 in Weight: 187 lb 193 lb BMI 37.8 38.9 BP 139/65 H 139/71 H Blood Pressure Location Lt brachial Lt brachial Position Sitting Sitting Respiration 16 18 Pulse 65 74 Pulse Source NIBP NIBP Intake Visit Reasons: 6 M FU Allergies Environmental Allergies: Uncoded (seasonal) Allergy (Mild, Verified 11/08/23 10:50) nasal drainage Medications ???Medication ???Instructions ???Recorded ???Confirmed ???Type aspirin 81 mg tablet,delayed 81 mg PO QDAY 03/08/17 05/15/24 Hi story release (Adult Low Dose Aspirin) levothyroxine 88 mcg tablet 88 mcg PO QDAY 03/08/17 05/15/24 H istory (Synthroid) lisinopril 40 mg tablet 40 mg PO QDAY 03/08/17 05/15/24 Hi story metoprolol succinate 100 mg 100 mg PO QDAY 03/08/17 05/15/24 H istory tablet,extended release 24 hr omeprazole 20 mg capsule,delayed 20 mg PO QDAY 03/15/18 05/15/24 Hi story release pravastatin 40 mg tablet 40 mg PO QHS #90 tabs 10/01/1903/10 Rx amlodipine 10 mg tablet 10 mg PO DAILY 08/22/20 05/15/24 H istory cholecalciferol (vitamin D3) 75 75 mcg PO DAILY 08/31/21 05/15/24 History mcg (3,000 unit) tablet Ejection fraction %: 60 Have you fallen in the past year?: No PFSH Medical History (Updated 05/15/24 @ 13:[address] Donald Cid MD) Essential hypertension IBS (irritable bowel syndrome) Hypothyroidism Hyperlipidemia Dizziness and giddiness Tachycardia Chest pain, precordial Premature atrial contractions Premature ventricular contraction Palpitations Family history of CVA Family history of hypertension Fatigue Surgical History History of left heart catheterization (LHC) ( 11/28/18) Family History Mother CVA (cerebral vascular accident) Brother Hypertension Social History Smoking Status: Never smoker alcohol intake: never substance use type: does not use caffeine: No ROS Const Const: Negative for fatigue, weakness, headache(s) or weight gain ENT ENT: Negative for headache(s), dizziness, Nosebleed/epistaxis or balance problems Cardio Chest Pain: No Palpitations: No Edema: None Muscle aches with walking: None Resp Respiratory: Negative for SOB with activity, SOB at rest or SOB orthopnea SOB lying down GI GI: Negative nausea, vomiting or heartburn Musc Musc: Negative for muscle aches/ myalgia, muscle weakness, joint pain or balance problems Neuro Neuro: Negative for dizziness, lightheadedness, near syncope, syncope, headache(s) or weakness Endo Endo: Negative for fatigue Cardiology Exam Const Appearance: comfortable and no acute distress Nutritional Appearance: well nourished and obese Neck Neck: no JVD Carotids: Negative bruit Chest Auscultation: Bilateral: Clear to Auscultation Cardio Rate: regular rate Rhythm: regular rhythm Heart sounds: S1 normal and S2 normal GI GI: obese Neuro General: patient alert, patient awake and patient oriented x3 Extremities Lower Extremity Edema: +2: Bilateral Supplemental Info Supplemental Information Stress Echocardiogram 11/06/2018: Interpretation Summary Technically difficult study Contrast injection performed Based upon the real-time and digital acquired 2D echocardiographic and contrast enhanced images at rest and status post stress there is the appearance of hypokinesis of the basal inferior and mid inferior segments at rest which status post stress appeared to improve, thus, being potentially compatible with an area of previous myocardial injury with subsequent findings compatible with myocardial viability, although, false positive resting regional wall motion abnormalities based upon the technically difficult study cannot necessarily be excluded. Cardiac Cath 11/28/2018: CONCLUSIONS Elevated Left Ventricular End Diastolic Pressure Normal LV size, wall motion,and systolic function LVEF: by LV gram 60 % Normal coronary arteries RECOMMENDATIONS Risk factor modification Medical therapy CORONARY ANGIOGRAPHY DOMINANCE: Right (more content not included)... Normal [facility] Breast imaging reportOrdered By: Binta Squires on 05-10-2024 Study report [facility] [address], [place] [id number] SCRN MAMM (CAD)W/YOLI BILAT MR#: [id number] Acct: [id number] Name: CELESTINA SERRANO Nicholas Rep #: [id number] : 1950 F 73 From: Kenny Squires DO PCP: Dr. Jolie Norman MD Status: REG CLI Study:SCRN MAMM (CAD)W/YOLI BILAT Date of Exa m: 05/09/24 Exam# [id number] Ordering Dr: Jolie Norman MD EXAM: SCRN MAMM (CAD)W/YOLI BILAT 05/09/2024 CLINICAL HISTORY: F, Age 73 y/o , SCREENING BREAST CANCER RISK ASSESSMENT: Has not been calculated. TECHNIQUE: Bilateral screening digital breast tomosynthesis with 2D images. Computer aided detection. COMPARISON: Prior exam(s) dated 05/09/2023 and 04/15/2022. FINDINGS: TISSUE DENSITY: The breast tissue is composed of scattered area of fibroglandular density. Bilateral Breast Mammographic Findings: There are no other dominant masses, areas of architectural distortion, or suspicious calcifications. Benign-appearing round microcalcifications are seen in both breasts. A stable 3 mm well-circumscribed isodense masses seen in the inferior medial aspect of the right breast. BI/SCRN MAMM (CAD)W/YOLI BILAT IMPRESSION: Right Breast: BIRADS 2 BENIGN FINDING. Left Breast: BIRADS 2 BENIGN FINDING. OVERALL FINAL ASSESSMENT: BIRADS 2 BENIGN FINDING RECOMMENDATION: Routine annual follow-up in 1 Year A letter with findings and recommendations will be mailed to the patient. Reading Location: [id number] CC: Dr. Jolie Norman MD ~ Machine Operator Slitter Technician: Signed [facility] SCRN MAMM (CAD)W/YOLI BILATo n 05-09-2024 SCRN MAMM (CAD)W/YOLI BILAT [facility] [address] [place] [id number] SCRN MAMM (CAD)W/YOLI BILAT MR#: [id number] Acct: [id number] Name: CELESTINA SERRANO Rep #: [id number] : 1950 F 73 From: Binta Rivas PCP: Dr. Jolie Norman MD Status: REG CLI Study: SCRN MAMM (CAD)W/YOLI BILAT Date of Exam: 04/15 08/08 Exam# [id number] Ordering Dr: Jolie Norman MD EXAM: SCRN MAMM (CAD)W/YOLI BILAT 05/09/2024 CLINICAL HISTORY: F, Age 73 y/o , SCREENING BREAST CANCER RISK ASSESSMENT: Has not been calculated. TECHNIQUE: Bilateral screening digital breast tomosynthesis with 2D images. Computer aided detection. COMPARISON: Prior exam(s) dated 05/09/2023 and 04/15/2022. FINDINGS: TISSUE DENSITY: The breast tissue is composed of scattered area of fibroglandular density. Bilateral Breast Mammographic Findings: There are no other dominant masses, areas of architectural distortion, or suspicious calcifications. Benign-appearing round microcalcifications are seen in both breasts. A stable 3 mm well-circumscribed isodense masses seen in the inferior medial aspect of the right breast. BI/SCRN MAMM (CAD)W/YOLI BILAT IMPRESSION: Right Breast: BIRADS 2 BENIGN FINDING. Left Breast: BIRADS 2 BENIGN FINDING. OVERALL FINAL ASSESSMENT: BIRADS 2 BENIGN FINDING RECOMMENDATION: Routine annual follow-up in 1 Year A letter with findings and recommendations will be mailed to the patient. Reading Location: [facility] CC: Dr. Jolie Norman MD Machine Operator Slitter Technician: Signed Normal [facility] Cardiology Visit Reporton Cardiology Visit Report [facility] [address] [place] [address] OFFICE VISIT Date of Service: 11/08/23 MR#: [id number] Acct: [id number] Name: CELESTINA SERRANO Rep #: [id number] : 1950 Provider: Dr. Donald Cid MD Age/Sex: 73/F Location: [facility] Status: Signed [facility] History of Present Illness Details: This lady has a history of hypertension, dyslipidemia and PACs. She is here for follow-up visit. Denies any complaints. No chest pains. No shortness of breath. No palpitations. No orthopnea or PND. Occasional ankle edema towards the end of the day. Intake Vital Signs 11/08/22 10:40 11/08/23 10:45 Height 4 ft 11 in 4 ft 11 in Weight: 186 lb 187 lb BMI 37.5 37.8 BP 134/73 H 139/65 H Blood Pressure Location Lt brachial Lt brachial Position Sitting Sitting Respiration 18 16 Pulse 61 65 Pulse Source Monitor NIBP Pulse Oximetry (%) 98 Intake Visit Reasons: 1 Y FU Accompanied by: Self Is patient in pain?: No Allergies Environmental Allergies: Uncoded (seasonal) Allergy (Mild, Verified 11/08/23 10:50) nasal drainage Medications ???Medication ???Instructions ???Recorded ???Confirmed ???Type aspirin 81 mg tablet,delayed 81 mg PO QDAY 03/08/17 11/08/23 History release (Adult Low Dose Aspirin) levothyroxine 88 mcg tablet 88 mcg PO QDAY 03/08/17 11/08/23 History (Synthroid) lisinopril 40 mg tablet 40 mg PO QDAY 03/08/17 11/08/23 History metoprolol succinate 100 mg 100 mg PO QDAY 03/08/17 11/08/23 History tablet,extended release 24 hr omeprazole 20 mg capsule,delayed 20 mg PO QDAY 03/15/18 11/08/23 History release pravastatin 40 mg tablet 40 mg PO QHS #90 tabs 10/01/19 11/08/23 Rx amlodipine 10 mg tablet 10 mg PO DAILY 08/22/20 11/08/23 History cholecalciferol (vitamin D3) 75 75 mcg PO DAILY 08/31/21 11/08/23 History mcg (3,000 unit) tablet Ejection fraction %: 60 Have you fallen in the past year?: No PFSH Medical History (Updated 11/08/23 @ 11:[address] Donald Cid MD) Essential hypertension IBS (irritable bowel syndrome) Hypothyroidism Hyperlipidemia Dizziness and giddiness Tachycardia Chest pain, precordial Premature atrial contractions Premature ventricular contraction Palpitations Family history of CVA Family history of hypertension Fatigue Surgical History History of left heart catheterization (LHC) ( 11/28/18) Family History Mother CVA (cerebral vascular accident) Brother Hypertension Social History Smoking Status: Never smoker alcohol intake: never substance use type: does not use caffeine: No ROS Const Const: Negative for fatigue, weakness or headache(s) ENT ENT: Positive for balance problems (occasional; with prolonged exertion); Negative for headache(s), dizziness or Nosebleed/epistaxis Cardio Chest Pain: No Palpitations: No Edema: Bilateral Muscle aches with walking: None Resp Respiratory: Negative for SOB with activity, SOB at rest or SOB orthopnea SOB lying down GI GI: Positive for heartburn; Negative nausea or vomiting Musc Musc: Positive for muscle aches/ myalgia (with exertion; s/p exercise) and balance problems (occasional; with prolonged exertion); Negative for muscle weakness or joint pain Neuro Neuro: Positive for lightheadedness (occasional); Negative for dizziness, near syncope, syncope, headache(s) or weakness Endo Endo: Negative for fatigue Cardiology Exam Const Appearance: comfortable and no acute distress Nutritional Appearance: well nourished and obese Neck Neck: no JVD Carotids: Negative bruit Chest Auscultation: Bilateral: Clear to Auscultation Cardio Rate: regular rate Rhythm: regular rhythm Heart sounds: S1 normal and S2 normal GI GI: obese Neuro General: patient alert, patient awake and patient oriented x3 Extremities Lower Extremity Edema: Trace: Bilateral Supplemental Info Supplemental Information Stress Echocardiogram: 11/06/2018 Interpretation Summary Technically difficult study Contrast injection performed Based upon the real-time and digital acquired 2D echocardiographic and contrast enhanced images at rest and status post stress there is the appearance of hypokinesis of the basal inferior and mid inferior segments at rest which status post stress appeared to improve, thus, being potentially compatible with an area of previous myocardial injury with subsequent findings compatible with myocardial viability, although, false positive resting regional wall motion abnormalities based upon the technically difficult study cannot necessarily be excluded. Cardiac Cath: 11/28/2018 CONC (more content not included)... Normal [facility] AST(SGOT)on 07-05-2023 AST [Catalytic activity/Vol] 20 U/L Normal 15- [facility] Comment on above: Performed By: #### L 501.4405, L501.9520, L501.0900, L501.9310, L500.2500, L501.4100, L500.4100 ####[facility] [address] [place], [address] Alanine Aminotransferas (SGP T)on 07-05-2023 ALT [Catalytic activity/Vol] 26 U/L Normal 13-56 [facility] Comment on above: Performed By: #### L 501.4405, L501.9520, L501.0900, L501.9310, L500.2500, L501.4100, L500.4100 ####[facility] [address] [place], [address] Basic Metabolic Profile (BMP )on 07-05-2023 BUN/CRE 26.1 RATIO High 10-20 [facility] Comment on above: Performed By: #### L 501.4405, L501.9520, L501.0900, L501.9310, L500.2500, L501.4100, L500.4100 #### [facility] Laboratory [address] [place], [address] CA,Total 9.4 mg/dL Normal 8.5-10.1 [facility] Comment on above: Performed By: #### L 501.4405, L501.9520, L501.0900, L501.9310, L500.2500, L501.4100, L500.4100 #### [facility] [address] [place], [address] Chloride [Moles/Vol] 107 mmol/L Normal 98-107 [facility] Comment on above: Performed By: #### L 501.4405, L501.9520, L501.0900, L501.9310, L500.2500, L501.4100, L500.4100 #### [facility] [address] [place], [address] CO2 [Moles/Vol] 27.0 mmol/L Normal 21.0-32.0 [facility] Comment on above: Performed By: #### L 501.4405, L501.9520, L501.0900, L501.9310, L500.2500, L501.4100, L500.4100 #### [facility] [address] [place], [address] Creatinine [Mass/Vol] 0.84 mg/dL Normal 0.55-1.02 [facility] Comment on above: Result Comment: The validity of the calculated GFR GFRAA in patients over 70 years has not been determined. Clinical correlation is essential. Performed By: #### L 501.4405, L501.9520, L501.0900, L501.9310, L500.2500, L501.4100, L500.4100 #### [facility] [address] [place], [address] EST GFR - AA 85 mL/min Normal >60 [facility] Comment on above: Result Comment: Afri can Citizen [place] GFR Calc Performed By: #### L 501.4405, L501.9520, L501.0900, L501.9310, L500.2500, L501.4100, L500.4100 #### [facility] [address] [place], [address] GAP 6 Normal 5-15 [facility] Comment on above: Performed By: #### L 501.4405, L501.9520, L501.0900, L501.9310, L500.2500, L501.4100, L500.4100 #### [facility] [address] [place], [address] GFR/1.73 sq M.predicted among non-blacks MDRD (S/P/Bld) [Vol rate/Area] 71 mL/min/{1.73_m2} Normal >60 [facility] Comment on above: Result Comment: Non- GFR Calc Performed By: #### L 501.4405, L501.9520, L501.0900, L501.9310, L500.2500, L501.4100, L500.4100 #### [facility] [address] [place], [address] Glucose [Mass/Vol] 88 mg/dL Normal 74-106 [facility] Comment on above: Performed By: #### L 501.4405, L501.9520, L501.0900, L501.9310, L500.2500, L501.4100, L500.4100 #### [facility] [address] [place], [address] Potassium [Moles/Vol] 4.2 mmol/L Normal 3.5-5.1 [facility] Comment on above: Performed By: #### L 501.4405, L501.9520, L501.0900, L501.9310, L500.2500, L501.4100, L500.4100 #### [facility] [address] [place], [address] Sodium [Moles/Vol] 140 mmol/L Normal 136-145 [facility] Comment on above: Performed By: #### L 501.4405, L501.9520, L501.0900, L501.9310, L500.2500, L501.4100, L500.4100 #### [facility] [address] [place], [address] Urea nitrogen [Mass/Vol] 22 mg/dL High 7-18 [facility] Comment on above: Performed By: #### L 501.4405, L501.9520, L501.0900, L501.9310, L500.2500, L501.4100, L500.4100 #### [facility] [address] [place], [address] Lipid Profileon 07-05-2023 Cholesterol [Mass/Vol] 180 mg/dL Normal 200 [facility] Comment on above: Result Comment: <200 mg/dL Desirable 200-240 mg/dL Borderline >240 mg/dL High Risk Performed By: #### L 501.4405, L501.9520, L501.0900, L501.9310, L500.2500, L501.4100, L500.4100 ####[facility] [address] [place], [address] Cholesterol in HDL [Mass/Vol] 39 mg/dL Low [facility] Comment on above: Result Comment: The drugs N-Acetylcysteine and Metamizole may falsely depress this assay. Reference Range HDL <40 mg/dL Low HDL Cholesterol HDL >or= 60 mg/dL High HDL Cholesterol Performed By: #### L 501.4405, L501.9520, L501.0900, L501.9310, L500.2500, L501.4100, L500.4100 ####[facility] [address] [place], [address] Cholesterol in LDL [Mass/Vol] 105 mg/dL Normal 0-130 [facility] Comment on above: Performed By: #### L 501.4405, L501.9520, L501.0900, L501.9310, L500.2500, L501.4100, L500.4100 ####[facility] [address] [place], [address] Cholesterol in VLDL [Mass/Vol] 36 mg/dL Normal 5-40 [facility] Comment on above: Performed By: #### L 501.4405, L501.9520, L501.0900, L501.9310, L500.2500, L501.4100, L500.4100 ####[facility] [address] [place], [address] Triglyceride [Mass/Vol] 179 mg/dL Normal W [facility] Comment on above: Result Comment: The drugs N-Acetylcysteine and Metamizole may falsely depress this assay. Serum Triglycerides Reference Interval Normal <150 mg/dL Borderline high 150 - 199 mg/dL High 200 - 499 mg/dL Very High > or = 500 mg/dL Performed By: #### L 501.4405, L501.9520, L501.0900, L501.9310, L500.2500, L501.4100, L500.4100 ####[facility] [address] [place], [address] Protein+Creatinine Ratio,Uri neon 07-05-2023 PROT:CRE RATIO 105 mg/g CRE Normal 0-200 [facility] Comment on above: Performed By: #### L 501.4405, L501.9520, L501.0900, L501.9310, L500.2500, L501.4100, L500.4100 #### [facility] [address] [place], [address] Protein (U) [Mass/Vol] 13.7 mg/dL High <11.9 [facility] Comment on above: Performed By: #### L 501.4405, L501.9520, L501.0900, L501.9310, L500.2500, L501.4100, L500.4100 #### [facility] [address] [place], [address] UR CREAT 130.00 mg/dL Normal NO RANGE EST. [facility] Comment on above: Performed By: #### L 501.4405, L501.9520, L501.0900, L501.9310, L500.2500, L501.4100, L500.4100 #### [facility] [address] [place], [address] T4 Total, Thyroxinon 024 T4 [Mass/Vol] 10.8 ug/dL Normal 4.8-13.9 [facility] Comment on above: Performed By: #### L 501.4405, L501.9520, L501.0900, L501.9310, L500.2500, L501.4100, L500.4100 ####[facility] [address] [place], [address] Thyroid Stim Hormone (TSH)on 07-05-2023 TSH 0.56 uIU/mL Normal 0.358-3.74 [facility] Comment on above: Performed By: #### L 501.4405, L501.9520, L501.0900, L501.9310, L500.2500, L501.4100, L500.4100 ####[facility] [address] [place], [address] Basophil percentageOrdered B y: Jolie Nroman on 12-28-2022 Chloride [Moles/Vol] 106 mmol/L 98-107 [facility] Cholesterol [Mass/Vol] 179 mg/dL <200 [facility] Comment on above: <200 mg/dL Desirable 200-240 mg/dL Borderline >240 mg/dL High Risk Glucose [Mass/Vol] 87 mg/dL 74-106 [facility] Potassium [Moles/Vol] 4.0 mmol/L 3.5-5.1 [facility] Sodium [Moles/Vol] 140 mmol/L 136-145 [facility] Triglyceride [Mass/Vol] 195 mg/dL <199 [facility] Comment on above: The drugs N-Acetylcy steine and Metamizole may falsely depress this assay.Serum Triglycerides Reference Interval Normal <150 mg/dL Borderline high 150 - 199 mg/dL High 200 - 499 mg/dL Very High > or = 500 mg/dL Laboratory - Chemistry and C hemistry - challengeOrdered By: Jolie Norman on 12-28-2022 ALT [Catalytic activity/Vol] 30 U/L 13-56 [facility] CO2 [Moles/Vol] 31.0 mmol/L 21.0-32.0 [facility] T4 [Mass/Vol] 13.5 ug/dL 4.8-13.9 [facility] Urea nitrogen/Creatinine [Mass ratio] 23.2 mg/mg 10-20 [facility] No Panel InformationOrdered By: Jolie Norman on 12-28-2022 Estimated GFR (MDRD) Amer 79 mL/min >60 [facility] Comment on above: GFR Calc Estimated GFR (MDRD) Non-Af Amer 65 mL/min >60 [facility] Comment on above: Non- GFR Calc Thyroid Stimulating Hormone (TSH) 0.60 uIU/mL 0.358-3.74 [facility] Vitamin D 25-Hydroxy 82.3 ng/mL [facility] Comment on above: Vitamin D 25(OH) Sta tus Range Deficiency <20 ng/mL (50nmol/L) Insufficiency 20 - 30 ng/mL (50 - 75 nmol/L) Sufficiency 30 - 100 ng/mL (75 - 250 nmol/L) Toxicity >100 ng/mL (>250 nmol/L) Serum or plasma calcium hannah urement (mass/volume)Ordered By: Jolie Norman on 12-28-2022 Calcium [Mass/Vol] 9.3 mg/dL 8.5-10.1 [facility] Serum or plasma cholesterol in HDL measurement (mass/volume)Ordered By: Jolie Norman on 12-28-2022 Cholesterol in HDL [Mass/Vol] 44 mg/dL >40 [facility] Comment on above: The drugs N-Acetylcy steine and Metamizole may falsely depress this assay. Reference Range HDL <40 mg/dL Low HDL Cholesterol HDL >or= 60 mg/dL High HDL Cholesterol Serum or plasma cholesterol in VLDL measurement (mass/volume)Ordered By: Jolie Norman on 12-28-2022 Cholesterol in VLDL [Mass/Vol] 39 mg/dL 5-40 [facility] Serum or plasma creatinine m easurement (mass/volume)Ordered By: Jolie Norman on 12-28-2022 Creatinine [Mass/Vol] 0.91 mg/dL 0.55-1.02 [facility] Comment on above: The validity of the calculated GFR & GFRAA in patients over 70 years has not been determined. Clinical correlation is essential. Serum or plasma low density lipoprotein (LDL) cholesterol measurement (mass/volume)Ordered By: Jolie Norman on 12-28-2022 Cholesterol in LDL [Mass/Vol] 96 mg/dL 0-130 [facility] Serum or plasma urea nitroge n measurement (mass/volume)Ordered By: Jolie Norman on 12-28-2022 Urea nitrogen [Mass/Vol] 21 mg/dL 7-18 [facility] Thin prep Papanicolaou smear with manual screeningOrdered By: Jolie Norman on 12-28-2022 Thin prep Papanicolaou smear with manual screening 19 U/L 15-37 [facility] Thin prep Papanicolaou smear with manual screening 3 5-15 [facility] Basophil percentageOrdered B y: Dr. Norman on 12-22-2021 Chloride [Moles/Vol] 105 mmol/L 98-107 [facility] Cholesterol [Mass/Vol] 172 mg/dL <200 [facility] Comment on above: <200 mg/dL Desirable 200-240 mg/dL Borderline >240 mg/dL High Risk Glucose [Mass/Vol] 89 mg/dL 74-106 [facility] Potassium [Moles/Vol] 4.2 mmol/L 3.5-5.1 [facility] Sodium [Moles/Vol] 139 mmol/L 136-145 [facility] Triglyceride [Mass/Vol] 219 mg/dL <199 [facility] Comment on above: The drugs N-Acetylcy steine and Metamizole may falsely depress this assay.Serum Triglycerides Reference Interval Normal <150 mg/dL Borderline high 150 - 199 mg/dL High 200 - 499 mg/dL Very High > or = 500 mg/dL Laboratory - Chemistry and C hemistry - challengeOrdered By: Dr. Norman on 12-22-2021 ALT [Catalytic activity/Vol] 28 U/L 13-56 [facility] CO2 [Moles/Vol] 29.0 mmol/L 21.0-32.0 [facility] T4 [Mass/Vol] 12.6 ug/dL 4.8-13.9 [facility] Urea nitrogen/Creatinine [Mass ratio] 20.8 mg/mg 10-20 [facility] No Panel InformationOrdered By: Dr. Norman on 12-22-2021 Estimated GFR (MDRD) Amer 83 mL/min >60 [facility] Comment on above: GFR Calc Estimated GFR (MDRD) Non-Af Amer 69 mL/min >60 [facility] Comment on above: Non- GFR Calc Thyroid Stimulating Hormone (TSH) 0.75 uIU/mL 0.358-3.74 [facility] Vitamin D 25-Hydroxy 71.1 ng/mL [facility] Comment on above: Vitamin D 25(OH) Sta tus Range Deficiency <20 ng/mL (50nmol/L) Insufficiency 20 - 30 ng/mL (50 - 75 nmol/L) Sufficiency 30 - 100 ng/mL (75 - 250 nmol/L) Toxicity >100 ng/mL (>250 nmol/L) Serum or plasma calcium hannah urement (mass/volume)Ordered By: Dr. Norman on 12-22-2021 Calcium [Mass/Vol] 9.3 mg/dL 8.5-10.1 [facility] Serum or plasma cholesterol in HDL measurement (mass/volume)Ordered By: Dr. Norman on 12-22-2021 Cholesterol in HDL [Mass/Vol] 42 mg/dL >40 [facility] Comment on above: The drugs N-Acetylcy steine and Metamizole may falsely depress this assay. Reference Range HDL <40 mg/dL Low HDL Cholesterol HDL >or= 60 mg/dL High HDL Cholesterol Serum or plasma cholesterol in VLDL measurement (mass/volume)Ordered By: Dr. Norman on 12-22-2021 Cholesterol in VLDL [Mass/Vol] 44 mg/dL 5-40 [facility] Serum or plasma creatinine m easurement (mass/volume)Ordered By: Dr. Norman on 12-22-2021 Creatinine [Mass/Vol] 0.86 mg/dL 0.55-1.02 [facility] Comment on above: The validity of the calculated GFR & GFRAA in patients over 70 years has not been determined. Clinical correlation is essential. Serum or plasma low density lipoprotein (LDL) cholesterol measurement (mass/volume)Ordered By: Dr. Norman on 12-22-2021 Cholesterol in LDL [Mass/Vol] 86 mg/dL 0-130 [facility] Serum or plasma urea nitroge n measurement (mass/volume)Ordered By: Dr. Norman on 12-22-2021 Urea nitrogen [Mass/Vol] 18 mg/dL 7-18 [facility] Thin prep Papanicolaou smear with manual screeningOrdered By: Dr. Norman on 12-22-2021 Thin prep Papanicolaou smear with manual screening 21 U/L 15-37 [facility] [facility] Thin prep Papanicolaou smear with manual screening 5 5-15 [facility] CNOVon 04-02-2020 CNOV Office Visit (PODIWS ) CELESTINA SERRANO ([id number]) 1950 F Date Time Provider Department 04/02/20 2:40 PM JARRETT MIDDLETON PODIWS During your visit today, we recorded the following information about you: Sandra Cortes Ma 04/02/2020 4:06 PM Signed AMB ROOMING INTAKE FLOWSHEET DATA Risk Screening Do you have concerns about personal safety or safety in the home?: No Pain Pain Level: 8 Pain Location: Other: See Comment(B/L feet) Description: Other: See comment(HODAN it's just pain) Frequency: Intermittent Intervention: Relaxation Patient presents with: Left Foot - New, Callous Right Foot - New, Callous Travel Screening Question Response In the last month, have you been in contact with someone who was confirmed or suspected to have Coronavirus / COVID-19? No / Unsure Have you had a COVID-19 viral test in the last 14 days? No Do you have any of the following new or worsening symptoms? None of these Have you traveled internationally or domestically in the last month? No Travel History Travel since 03/02/20 No documented travel since 03/02/20 Jarrett Middleton DPM 04/02/2020 4:06 PM Signed Initial Podiatric Office Visit: Chief Complaint: This 69 year old female who presents with chief complaint:painful callus of b/l feet HPI Patient presents to clinic for evaluation of b/l feet. She has complaint of painful callus to plantar foot of b/l feet. Patient states the callus have been going on for atleast 3 years. She treats by shaving them down herself. Patient does wear inserts which she is not sure if that is helping. Patient is also here with concerns of thick discolored toenails. PAIN EVALUATION 04/02/2020 1447 Pain Level: 8 Pain Location: Other: See Comment B/L feet Description: Other: See comment HODAN it's just pain Frequency: Intermittent Intervention: Relaxation No results found for: HBA1C PCP: Jolie Norman MD PAST MEDICAL HISTORY Diagnosis Date - Allergic rhinitis, cause unspecified Allergic rhinitis - Diarrhea - Diverticulosis of colon (without mention of hemorrhage) - Essential hypertension, benign - Internal hemorrhoids without mention of complication - Irritable bowel syndrome Irritable bowel - Other and unspecified hyperlipidemia Hyperlipidemia - Unspecified hypothyroidism Hypothyroidism Current Outpatient Medications Medication Sig - metoprolol succinate(TOPROL XL 100 MG 24 HR TAB) Take one(1) tablet daily. - LEVOTHYROXINE 50 MCG TAB Take one(1) tablet daily. (Patient not taking: ) - NASACORT 55 MCG/ACTUATION NASAL SPRAY Two sprays each nostril daily. (Patient not taking: ) No current facility-administered medications for this visit. ALLERGIES Allergen Reactions - Biaxin [Clarithromy* - Vibramycin [Doxycyc* PAST SURGICAL HISTORY Procedure Laterality Date - COLONOSCOPY W/BX 12/23/05 - CYST/MOLE REMOVAL - HEART SURGERY HX FAMILY HISTORY Problem Relation Age of Onset - Cancer Mother Lymphoma - Heart Father CHF - Breast Cancer Maternal Grandmother Social History Tobacco Use - Smoking status: Never Smoker - Smokeless tobacco: Never Used Substance Use Topics - Alcohol use: Not Currently Comment: ocassional - Drug use: No REVIEW OF SYSTEMS GENERAL: Negative for Malaise, significant weight loss, fever RESPIRATORY: Negative for cough, wheezing and shortness of breath CARDIOVASCULAR: Negative for chest pain, leg swelling and palpitations GI: Negative for abdominal discomfort, blood in stools or black stools and change in bowel habits : Negative for dysuria, frequency and incontinence MUSCULOSKELETAL: Negative for joint pain or swelling, back pain, and muscle pain. SKIN: Negative for lesions, rash, and itching. HEMATOLOGY/LYMPHOLOGY Negative for prolonged bleeding, bruising easily, and swollen nodes. ENDOCRINE: Negative for cold or heat intolerance, polyuria, polydipsia and goiter. NEURO: negative Physical Exam: Constitutional: Pt is a well developed 69 year old female who is alert, oriented and cooperative Eyes: Following during examination. No redness or drainage. Respiratory: RR normal and nonlabored. Even breathing. No evidence of distress or shortness of breath. Psychology: Patient is engaged during conversation. Normal affect and mood. Does not appear depressed or anxious during encounter. Vascular: Dorsalis pedis and posterior tibial pulses palpable as b/l Capillary Fill time < 5 seconds to digits 1-5 b/l Skin temperature warm to warm proximal to distal b/l Hair growth present to digits Neurological: intact light touch/epicritic sensation b/l intact protective sensation no significant neurological deficits Dermatological: Nails 1-5 b/l appear normal thick, discolored, painful, incurvating.. Webspaces clean and dry 1-4 b/l. Skin appears well hydrated and supple. good color (more content not included)... Normal [facility] Vital Signs Date Time Vital Sign Value Performing Clinician Faci lity 05-15-2024 12:57-0400 Body mass index (BMI) [Ratio] 38.9 kg/m2 Dr. Jolie Norman MD Work Phone: [facility] 05-15-2024 12:57-0400 Body weight 87.[address] Jolie Norman MD Work Phone: [facility] 05-15-2024 12:57-0400 Diastolic blood pressure 71 mm[Hg] Dr. Jolie Norman MD Work Phone: [facility] 05-15-2024 12:57-0400 Heart rate 74 /min Dr. Jolie Norman MD Work Phone: [facility] 05-15-2024 12:57-0400 Respiratory rate 18 /min Dr. Jolie Norman MD Work Phone: [facility] 05-15-2024 12:57-0400 Systolic blood pressure 139 mm[Hg] Dr. Jolie Norman MD Work Phone: [facility] 11-08-2022 10:40-0400 Body height 149.[address] Jolie Norman Work Phone: [facility] 11-08-2022 10:40-0400 Body mass index (BMI) [Ratio] 37.5 kg/m2 Dr. Jolie Norman Work Phone: [facility] 11-08-2022 10:40-0400 Body weight 84.[address] Jolie Norman Work Phone: [facility] 11-08-2022 10:40-0400 Diastolic blood pressure 73 mm[Hg] Dr. Jolie Norman Work Phone: [facility] 11-08-2022 10:40-0400 Heart rate 61 /min Dr. Jolie Norman Work Phone: [facility] 11-08-2022 10:40-0400 Respiratory rate 18 /min Dr. Jolie Norman Work Phone: [facility] 11-08-2022 10:40-0400 SaO2% (BldA) [Mass fraction] 98 % Dr. Jolie Norman Work Phone: [facility] 11-08-2022 10:40-0400 Systolic blood pressure 134 mm[Hg] Dr. Jolie Norman Work Phone: [facility] 08-31-2021 11:36-0400 Body height 149.[address] Jolie Norman Work Phone: [facility] Work Phone: 08-31-2021 11:36-0400 Body mass index (BMI) [Ratio] 36.3 kg/m2 Dr. Jolie Norman Work Phone: [facility] Work Phone: 08-31-2021 11:36-0400 Body weight 81.[address] Jolie Norman Work Phone: [facility] Work Phone: 08-31-2021 11:36-0400 Diastolic blood pressure 63 mm[Hg] Dr. Jolie Norman Work Phone: [facility] Work Phone: 08-31-2021 11:36-0400 Heart rate 70 /min Dr. Jolie Norman Work Phone: [facility] Work Phone: 08-31-2021 11:36-0400 Respiratory rate 18 /min Dr. Jolie Norman Work Phone: [facility] Work Phone: 08-31-2021 11:36-0400 Systolic blood pressure 105 mm[Hg] Dr. Jolie Norman Work Phone: [facility] Work Phone: Encounters Encounter Date Encounter Type Care Provider Facility Start: 06-14-2024 ambulatory Courtney Malys Facility:[facility] Start: 06-07-2024 End: 06-07-2024 ambulatory Jolie Norman Facility:[facility] Start: 05-25-2024 End: 05-25-[address] Donald Cid MD -Laboratory Work Phone: Start: 05-25-2024 End: 05-25-[address] Jolie Norman MD Work Phone: [facility] Work Phone: Start: 05-25-2024 End: 05-25-2024 ambulatory Donald Hedy Facility:[facility] Start: 05-23-2024 Non-patient / Non-visit Dr. Donald gillis MD -[facility] Start: 05-23-2024 End: 05-23-[address] Jolie Norman MD Work Phone: [facility] Work Phone: Start: 05-23-2024 End: 05-23-[address] Donald Cid MD -Cardiovascular Services Work Phone: Start: 05-23-2024 End: 05-23-2024 ambulatory Donald Hedy Facility:[facility] Start: 05-15-2024 End: 05-15-[address] Donald Cid MD -[facility] Work Phone: Start: 05-15-2024 End: 05-15-2024 ambulatory Jolie Norman Facility:[facility] Start: 05-09-2024 End: 05-09-[address] Jolie Norman MD Work Phone: [facility] Work Phone: Start: 05-09-2024 End: 05-09-[address] Jolie Norman MD -Outpatient Breast Imaging Work Phone: Start: 05-09-2024 End: 05-09-2024 ambulatory Jolie Norman Facility:[facility] Start: 11-08-2023 End: 11-08-2023 ambulatory Donald Cid Facility:[facility] Start: 07-05-2023 End: 07-05-2023 ambulatory Jolie Norman Facility:[facility] Start: 05-09-2023 End: 05-09-2023 ambulatory [facility] Work Phone: Start: 05-09-2023 End: 05-09-2023 Patient encounter procedure [facility]-Outpatient Breast Imaging Work Phone: Start: 12-28-2022 End: 12-28-[address] Jolie Norman Work Phone: [facility] Work Phone: Start: 12-28-2022 End: 12-28-[address] Jolie Norman Work Phone: [facility] Start: 11-08-2022 End: 11-08-[address] Jolie Norman Work Phone: [facility] Work Phone: Start: 04-15-2022 End: 04-15-2022 ambulatory [facility] Work Phone: Start: 04-15-2022 End: 04-15-2022 Patient encounter procedure [facility]-Outpatient Breast Imaging Start: 12-22-2021 End: 12-22-[address] Jolie Norman Work Phone: [facility] Work Phone: Start: 12-22-2021 End: 12-22-[address] Jolie Norman Work Phone: [facility] Start: 08-31-2021 End: 08-31-[address] Jolie Norman Work Phone: [facility] Procedures Date Procedure Procedure Detail Performing Clinician Start: 05-09-2024 Screening mammography Dylon Norman MD Work Phone: Start: 05-09-2023 Screening mammography Start: 04-15-2022 Screening mammography Plan of Treatment Date Care Activity Detail Author Patient referral [facility] Work Phone: Payers Date Payer Category Payer Medicare [id number] 2023 Private Health Insurance CLI [id number] 2023 Self-pay [id number] Medicare MEDICARE PART A B [id number] Unknown [employer] [id number] Unknown [id number] Unknown [id number] Unknown [id number] Unknown [id number] Unknown [id number] Unknown [id number] Unknown [id number] Unknown [id number] Unknown [id number] Unknown [id number] Social History Date Type Detail Facility Start: 08-31-2021 End: 11-08-2022 Tobacco smoking status VAIS Unknown if ever smoked [facility] Start: 1950 Sex Assigned At Female W [facility] Start: 11-08-2022 Tobacco smoking stat [facility] Never smoked tobacco (finding) [facility] Start: 2024 End: 05-30-2024 Sex Female (finding) [facility] Evaluation note 05-15-2024 Note Date & Type Note Facility 05-15-2024 Evaluation note Diagnosis Onset Date Resolution Bilateral lower extremity edema chronic May 15, 2024 12:57pm Dyslipidemia chronic May 15 12:57pm Essential hypertension chronic Ap 2024 12:57pm Palpitations resolved May 15 025 12:57pm [facility] Work Phone: Progress note 04-02-2020 Note Date & Type Note Facility 04-02-2020 Note HNO ID: [id number] Author: Jarrett Middleton Service: ? Author Type: Physician Type: Progress Notes Filed: 04/02/2020 4:06 PM Note Text: Initial Podiatric Office Visit: Chief Complaint: This 69 year old female who presents with chief complaint:painful callus of b/l feet HPI Patient presents to clinic for evaluation of b/l feet. She has complaint of painful callus to plantar foot of b/l feet. Patient states the callus have been going on for atleast 3 years. She treats by shaving them down herself. Patient does wear inserts which she is not sure if that is helping. Patient is also here with concerns of thick discolored toenails. PAIN EVALUATION 04/02/2020 1447 Pain Level: 8 Pain Location: Other: See Comment B/L feet Description: Other: See comment HODAN it's just pain Frequency: Intermittent Intervention: Relaxation No results found for: HBA1C PCP: Jolie Norman MD PAST MEDICAL HISTORY Diagnosis Date - Allergic rhinitis, cause unspecified Allergic rhinitis - Diarrhea - Diverticulosis of colon (without mention of hemorrhage) - Essential hypertension, benign - Internal hemorrhoids without mention of complication - Irritable bowel syndrome Irritable bowel - Other and unspecified hyperlipidemia Hyperlipidemia - Unspecified hypothyroidism Hypothyroidism Current Outpatient Medications Medication Sig - metoprolol succinate(TOPROL XL 100 MG 24 HR TAB) Take one(1) tablet daily. - LEVOTHYROXINE 50 MCG TAB Take one(1) tablet daily. (Patient not taking: ) - NASACORT 55 MCG/ACTUATION NASAL SPRAY Two sprays each nostril daily. (Patient not taking: ) No current facility-administered medications for this visit. ALLERGIES Allergen Reactions - Biaxin [Clarithromy* - Vibramycin [Doxycyc* PAST SURGICAL HISTORY Procedure Laterality Date - COLONOSCOPY W/BX 12/23/05 - CYST/MOLE REMOVAL - HEART SURGERY HX FAMILY HISTORY Problem Relation Age of Onset - Cancer Mother Lymphoma - Heart Father CHF - Breast Cancer Maternal Grandmother Social History Tobacco Use - Smoking status: Never Smoker - Smokeless tobacco: Never Used Substance Use Topics - Alcohol use: Not Currently Comment: ocassional - Drug use: No REVIEW OF SYSTEMS GENERAL: Negative for Malaise, significant weight loss, fever RESPIRATORY: Negative for cough, wheezing and shortness of breath CARDIOVASCULAR: Negative for chest pain, leg swelling and palpitations GI: Negative for abdominal discomfort, blood in stools or black stools and change in bowel habits : Negative for dysuria, frequency and incontinence MUSCULOSKELETAL: Negative for joint pain or swelling, back pain, and muscle pain. SKIN: Negative for lesions, rash, and itching. HEMATOLOGY/LYMPHOLOGY Negative for prolonged bleeding, bruising easily, and swollen nodes. ENDOCRINE: Negative for cold or heat intolerance, polyuria, polydipsia and goiter. NEURO: negative Physical Exam: Constitutional: Pt is a well developed 69 year old female who is alert, oriented and cooperative Eyes: Following during examination. No redness or drainage. Respiratory: RR normal and nonlabored. Even breathing. No evidence of distress or shortness of breath. Psychology: Patient is engaged during conversation. Normal affect and mood. Does not appear depressed or anxious during encounter. Vascular: Dorsalis pedis and posterior tibial pulses palpable as b/l Capillary Fill time < 5 seconds to digits 1-5 b/l Skin temperature warm to warm proximal to distal b/l Hair growth present to digits Neurological: intact light touch/epicritic sensation b/l intact protective sensation no significant neurological deficits Dermatological: Nails 1-5 b/l appear normal thick, discolored, painful, incurvating.. Webspaces clean and dry 1-4 b/l. Skin appears well hydrated and supple. good color, texture, turgor. No open lesions present. No callosities present. porokeratosis to left 5th metatarsal head, left mifoot, right lateral midfoot Musculoskeletal/Orthopaedic: Patient has pain to palpation of painful callus of b/l feet Foot type is pronated structurally AJ ROM is full with knee extended and flexed 1st MPJ is full when loaded and no pain or crepitus are noted with ROM. MTJ, STJ are full and free of pain and crepitus. +5/5 muscle strength dorsiflexion, plantarflexion, inversion, eversion b/l Radiographs: n/a ASSESSMENT: (Q82.8) Porokeratosis (primary encounter diagnosis) (B35.1) Onychomycosis (M79.675) Pain in toe of left foot (M79.674) Pain in toe of right foot PLAN: 1. History and physical examination performed. 2. Porokeratosis reduced to b/l feet with 15 blade. tca applied under occlusion. Recommend gel inserts, use of donut hole pad to offload pressure areas and use of pummice stone periodically. 3. We discussed the possible etiologies of discolored, dystrophic, and thickened nails including fungus, yeas (more content not included)... [facility] Progress note 04-02-2020 Note Date & Type Note Facility 04-02-2020 Note HNO ID: [id number] Author: Sandra Cortes Ma Service: ? Author Type: ? Type: Progress Notes Filed: 04/02/2020 4:06 PM Note Text: AMB ROOMING INTAKE FLOWSHEET DATA Risk Screening Do you have concerns about personal safety or safety in the home?: No Pain Pain Level: 8 Pain Location: Other: See Comment(B/L feet) Description: Other: See comment(HODAN it's just pain) Frequency: Intermittent Intervention: Relaxation Patient presents with: Left Foot - New, Callous Right Foot - New, Callous Travel Screening Question Response In the last month, have you been in contact with someone who was confirmed or suspected to have Coronavirus / COVID-19? No / Unsure Have you had a COVID-19 viral test in the last 14 days? No Do you have any of the following new or worsening symptoms? None of these Have you traveled internationally or domestically in the last month? No Travel History Travel since 03/02/20 No documented travel since 03/02/20 [facility] Evaluation note Note Date & Type Note Facility Evaluation note Diagnosis Onset Date Essential hypertension chron ic Hyperlipidemia chronic Premature atrial contractions chronic Premature ventricular contraction chronic [facility] Work Phone: Evaluation note Note Date & Type Note Facility Evaluation note No assessment information availa ble [facility] Work Phone: Reason for referral (narrative) Note Date & Type Note Facility Reason for referral (narrative) No reason for referral information available [facility] Work Phone: Summary Purpose Family History No Family History Records Found Relationship Condition Age at Onset Recorded Date/T mary mother Cerebrovascular accident (CVA) Unknown brother Hypertension Unknown Advance Directives No Advanced Directives Records Found Advance Directive Response Recorded Date/ Time Advance Directives Yes November 28, 2018 9:16am Living Will Yes November 28 9:16am Power of [employer] Yes November 28, 2018 9:16am Advance Directive Response Recorded Date/ Time Advance Directives Yes November 28, 2018 10:16am Living Will Yes November 28 10:16am Power of [employer] Yes November 28, 2018 10:16am Advance Directive Response Recorded Date/ Time Advance Directives Yes November 28, 2018 10:16am Chief Complaint and Reason for Visit Chief Complaint 1 Y FU (WITH PFM) Reason for Visit Essential hypertensi on Hyperlipidemia Premature atrial contractions Premature ventricular contraction Chief Complaint SCREENING Chief Complaint 1 Y FU PREV PFM PT Reason for Visit Essential hypertensi on Hyperlipidemia Premature atrial contractions Premature ventricular contraction Chief Complaint Admit Date SCREENING May 09, 2024 9:1 4am Chief Complaint Admit Date SCREENING May 09, 2024 9:1 4am 6 M FU May 15, 2024 12:5 7pm GENERALIZED EDEMA May 23, 2024 6:45 am BLOOD PRESSURE (HEDY) May 25, 2024 11:10am INT LAB ORDER May 25, 2024 11: 50am Reason for Visit Admit Date Bilateral lower extremity edema May 12:57pm Dyslipidemia May 15, 2024 12:5 7pm Essential hypertension May 15, 2024 1 2:57pm Palpitations May 15, 2024 12:5 7pm Additional Source Comments INFORMATION SOURCE (unrecogn ized section and content) DATE CREATED AUTHOR 03/13/2021 [facility] DATE CREATED AUTHOR AUTHOR'S ORGANIZ ATION 06/19/2024 [facility] Goals (unrecognized section and content) Goals may be documented in a n alternate sectionGoals may be documented in an alternate sectionGoals may be documented in an alternate sectionGoals may be documented in an alternate sectionGoals may be documented in an alternate sectionGoals may be documented in an alternate sectionGoals may be documented in an alternate section Care Teams (unrecognized sec tion and content) Team Status: Active Member Role Status Dates Dr. Jolie Norman MD Family Provider Active Dr. Jolie Norman MD Primary Care Provider Active Team Status: Inactive Member Role Status Dates Dr. Jolie Norman MD Primary Care Provider, Attendin g Provider Active Team Status: Inactive Member Role Status Dates Dr. Jolie Norman MD Primary Care Prov ider, Attending Provider, Referring Provider Active Team Status: Inactive Member Role Status Dates Dr. Jolie Norman MD Primary Care Provider, Referrin g Provider Active Anjel Chance HISTOLOGY SPECIALIST, HISTOLOGY SPECIALIST-C Attending Provider Active Team Status: Active Member Role Status Dates Dr. Jolie Norman MD Primary Care Provider Active Team Status: Inactive Member Role Status Dates Dr. Jolie Norman MD Primary Care Provider Active Start: May 09, 2024 End: May 09, 2024 Dr. Jolie Norman MD Attending Provider Active Start: May 09, 2024 End: May 09, 2024 Dr. Jolie Norman MD Referring Provider Active Start: May 09, 2024 End: May 09, 2024 Team Status: Inactive Member Role Status Dates Dr. Jolie Norman MD Primary Care Provider Active Start: May 15, 2024 End: May 15, 2024 Dr. Jolie Norman MD Referring Provider Active Start: May 15, 2024 End: May 15, 2024 Dr. Donald Cid MD Attending Provider Active Start: May 15, 2024 End: May 15, 2024 Team Status: Inactive Member Role Status Dates Dr. Jolie Norman MD Primary Care Provider Active Start: May 23, 2024 End: May 23, 2024 Dr. Donald Cid MD Attending Provider Active Start: May 23, 2024 End: May 23, 2024 Dr. Donald Cid MD Referring Provider Active Start: May 23, 2024 End: May 23, 2024 Team Status: Active Member Role Status Dates Dr. Jolie Norman MD Primary Care Provider Active Start: May 23, 2024 Dr. Donald Cid MD Attending Provider Active Start: May 23, 2024 Team Status: Inactive Member Role Status Dates Dr. Jolie Norman MD Primary Care Provider Active Start: May 25, 2024 End: May 25, 2024 Dr. Jolie Norman MD Referring Provider Active Start: May 25, 2024 End: May 25, 2024 Dr. Donald Cid MD Attending Provider Active Start: May 25, 2024 End: May 25, 2024 Team Status: Active Member Role Status Dates Dr. Jolie Norman MD Primary Care Provider Active Start: May 25, 2024 Dr. Donald Cid MD Attending Provider Active Start: May 25, 2024 Dr. Donald Cid MD Referring Provider Active Start: May 25, 2024 Team Status: Inactive Member Role Status Dates Dr. Jolie Norman MD Primary Care Provider Active Start: May 25, 2024 End: May 25, 2024 Dr. Donald Cid MD Attending Provider Active Start: May 25, 2024 End: May 25, 2024 Dr. Donald Cid MD Referring Provider Active Start: May 25, 2024 End: May 25, 2024 FOR RECORDS PERTAINING TO PATIENTS WHO ARE OR HAVE BEEN ENROLLED IN A CHEMICAL DEPENDENCY/SUBSTANCEABUSE PROGRAM, SOME INFORMATION MAY BE OMITTED. This clinical summary was aggregated from multiple sources. Caution should be exercised in using it in the provision of clinical care. This summary normalizes information from multiple sources, and as a consequence, information in this document may materially change the coding, format and clinical context of patient data. In addition, data may be omitted in some cases. CLINICAL DECISIONS SHOULD BE BASED ON THE PRIMARY CLINICAL RECORDS. [facility] [employer] [facility]. provides no warranty or guarantee of the accuracy or completeness of information in this document.
== END | disposition home or self-care (01) ==
LOC: MTLAB 09:25
PROVIDERS: PCP Family Medicine; Referring Provider Family Medicine; Visit Provider Family Medicine
DX: E03.9 Hypothyroidism, unspecified (principal)
CPT/HCPCS: 36415; 84439; 84443; 84481

== ENCOUNTER → 2024-09-11 | Outpatient (CLI) | payer MEDICARE, OTHER, SELFPAY ==
--- OUTSIDE RECORDS SUMMARY | 2024-09-11 20:13 | XMS RPT_ITS | CCD ---
Author Organization [facility] Care Team Providers Care Genetic Technologist Name Role Phone Dr. Jolie Norman Primary Care Provider Dr. Jolie Norman Referring Provider Dr. Lucian Perez Attending Provider Dr. Jolie Norman Primary Care Provider Dr. Jolie Norman Referring Provider [phone] Roof BIODIESEL PRODUCT MANAGER, BIODIESEL PRODUCT MANAGER-C Anjel Riley Attending Provider Dr. Jolie Norman MD Primary Care Provider Dr. Jolie Norman MD Attending Provider Dr. Jolie Norman MD Referring Provider Hedy PIMENTEL, Dr. Bennett Attending Provider Dr. Donald Cid MD Referring Provider Meron BIODIESEL PRODUCT MANAGER-Anjel Prieto Attending Provider Roof BIODIESEL PRODUCT MANAGER-Anjel Prieto Referring Provider Dr. Courtney Zavala DO Primary Care Provider Dr. Courtney Zavala DO Attending Provider [phone] Courtney Zavala DO Referring Provider [phone] Courtney Zavala Primary Care Unavailable Courtney Zavala Attending Unavailable Courtney Zavala Referring Unavailable Donald Cid Attending Unavailable Jolie Norman Primary Care Unavailable Jolie Norman Referring Unavailable HedyDonald godinez Attending Unavailable Jollarvind Jolie S Primary Care Unavailable Jolliff, Jolie S Referring Unavailable Jolliff, Jolie S Primary Care Unavailable HedyDonald Attending Unavailable Roberiff, Jolie S Primary Care Unavailable Jolliff, Jolie S Referring Unavailable Hedy, Donald Attending Unavailable Roberiff, Jolie S Primary Care Unavailable Jolliff, Jolie S Attending Unavailable Joselynlliff, Jolie S Referring Unavailable Hedy, Donald Attending Unavailable Roberiff, Jolie S Primary Care Unavailable Hedy, Donald Referring Unavailable Ester, Jolie S Primary Care Unavailable Hedy, Donald Referring Unavailable HedyDonald Attending Unavailable Jolie Norman S Primary Care Unavailable Roof BIODIESEL PRODUCT MANAGER, Anjel Riley Attending Unavailable Roof BIODIESEL PRODUCT MANAGER, Anjel Riley Referring Unavailable Allergies Allergy Classification Reported Allergen(s) Allergy Type Date of Onset Reaction(s) Facility (5 sources) Environmental Allergies: Uncoded; Translations: [Environmental Allergies: Uncoded] Allergy to substance 4 nasal drainage [facility] Medications Current Medications Medication Drug Class(es) Dates Sig (Normalized) Sig (Original) aspirin 81 mg delayed release oral tablet (8 sources) Platelet Aggregation Inhibitor, Nonsteroidal Anti-inflammatory Drug [...] 08, 2017 1:00am March 21, 2019 3:23pm levothyroxine sodium 0.075 mg oral tablet (10 sources) l-Thyroxine Start: 06-11-2024 take 1 tablet by mouth once daily Levothyroxine 75 mcg tablet Active 75 ug PO daily June 11, 2024 12:00am Start: 06-07-2024 End: 06-11-2024 take 1 tablet by mouth every week Levothyroxine 50 mcg tablet Discontinued 50 ug PO .COMPLEX June 07, 2024 12:00am June 11, 2024 11:17am 50 mcg orally verify actual dose decrease with pt/neice next week; decreased by Dr. Zavala. Start: 03-08-2017 End: 06-07-2024 take 1 tablet by mouth once daily Levothyroxine (Synthroid) 88 mcg tablet Discontinued 88 ug PO daily 0 March 08, 2017 1:00am June 07, 2024 4:39pm lisinopril 40 mg oral tablet (9 sources) Angiotensin Converting Enzyme Inhibitor Start: 03-08-2017 End: 06-04-2024 take 1 tablet by mouth once daily at bedtime Lisinopril 40 mg tablet Active 40 mg PO .COMPLEX June 04, 2024 1:35pm 40 mg orally qhs; 24 hr metoprolol succinate 100 mg extended release oral tablet (9 sources) beta-Adrenergic Carlos Start: 06-04-2024 take 1 tablet by mouth every twenty-four hours at bedtime Metoprolol Succinate 100 mg tablet extended release 24 hr Active 100 mg PO AT BEDTIME June 04, 2024 1:35pm Start: 03-08-2017 End: 06-04-2024 take 1 tablet by mouth once daily Metoprolol Succinate 100 mg tablet extended release 24 hr Discontinued 100 mg PO daily March 08, 2017 1:00am June 04, 2024 1:35pm omeprazole 20 mg delayed release oral capsule (16 sources) Proton Pump Inhibitor Start: 03-08-2017 End: 03-15-2018 take 1 capsule by mouth once daily Omeprazole 20 mg capsule,delayed release(DR/EC) Active 20 mg PO daily March 15, 2018 2:38pm Completed/Discontinued Medications Medication Drug Class(es) Dates Sig (Normalized) Sig (Original) amLODIPine 5 mg oral tablet (20 sources) Dihydropyridine Calcium Channel Carlos Start: 06-04-2024 End: 06-11-2024 take 1 tablet by mouth once daily in the morning Amlodipine 5 mg tablet Discontinued 5 mg PO EVERY MORNING 90 3 June 11, 2024 11:20am June 11, 2024 11:22am This dose has been decreased Start: 08-22-2020 End: 05-15-2024 take 1 tablet by mouth once daily Amlodipine 10 mg tablet Discontinued 10 mg PO DAILY August 22, 2020 12:00am May 15, 2024 4:41pm Start: 03-08-2017 End: 08-22-2020 take 1 tablet by mouth once daily Amlodipine (Norvasc) 5 mg tablet Discontinued 5 mg PO daily March 08, 2017 1:00am August 22, 2020 3:08pm clopidogrel 75 mg oral tablet (16 sources) P2Y12 Platelet Inhibitor Start: 11-08-2018 End: 11-28-2018 take 1 tablet by mouth once daily Clopidogrel 75 mg tablet Discontinued 75 mg PO DAILY 30 2 November 14, 2018 2:57pm November 28, 2018 4:29pm for Cardiac Cath hydroCHLOROthiazide 25 mg oral tablet (8 sources) Thiazide Diuretic Start: 05-15-2024 End: 06-11-2024 take 1 tablet by mouth once daily in the morning Hydrochlorothiazide 25 mg tablet Discontinued 25 mg PO EVERY MORNING 90 3 June 11, 2024 11:20am June 11, 2024 11:22am ketoconazole 20 mg/ml topical cream (8 sources) Azole Antifungal Start: 03-08-2017 End: 03-14-2017 [...] Discontinued 40 mg PO AT BEDTIME 90 3 December 25, 2018 7:03pm October 01, 2019 11:07am Problems Active Problems Problem Classification Problem Date Documented Da te Episodic/Chronic Cardiac dysrhythmias (20 sources) Multiple premature ventricular complexes; Translations: [Ventricular premature depolarization] Chronic Cardiac dysrhythmias (20 sources) Palpitations; Translations: [Palpitations] Onset: 05-15-2024 11-14-2018 Episodic Conditions associated with dizziness or vertigo (8 sources) Dizziness and giddiness; Translations: [Dizziness and giddiness] 11-28-2018 Episodic Disorders of lipid metabolism (18 sources) Hyperlipidemia; Translations: [Hyperlipidemia, unspecified] Onset: 05-15-2024 Chronic Essential hypertension (14 sources) Essential hypertension; Translations: [Essential (primary) hypertension] Onset: 06-12-2024 Chronic Malaise and fatigue (9 sources) Fatigue; Translations: [Other fatigue] Onset: 05-30-2024 11-28-2018 Episodic Nonspecific chest pain (8 sources) Precordial pain; Translations: [Precordial pain] 11-14-2018 Episodic Residual codes; unclassified (6 sources) Bilateral lower limb edema; Translations: [Localized edema] 05-15-2024 Episodic Residual codes; unclassified (1 source) Localized edema; Translations: [Localized edema] Onset: 05-29-2024 Episodic Thyroid disorders (1 source) Hypothyroidism, unspecified; Translations: [Hypothyroidism, unspecified] Onset: 08-13-2024 Chronic Past or Other Problems Problem Classification Problem Date Documented Date Episodic/Chronic Other screening for suspected conditions (not mental disorders or infectious disease) (9 sources) Echocardiogram abnormal; Translations: [Abnormal result of other cardiovascular function study] Onset: 2024 11-08-2018 Episodic Results Test Name Value Interpretation Reference Range Facility Free T3on 08-07-2024 Free T3 [Mass/Vol] 2.7 pg/mL Normal 2.18-3.98 [facility] Comment on above: Performed By: #### L 501.39852, L501.9520, L506.0400 #### [facility] Laboratory [facility] [place], [address] Free [id number] By: Courtney quinteros on 08-07-2024 Free T3 [Mass/Vol] 2.7 pg/mL 2.18-3.98 [facility] T4 Free Directon 08-07-2024 T4 FREE DIRECT 1.30 ng/dL Normal 0.76-1.46 [facility] Comment on above: Performed By: #### L 501.21883, L501.9520, L506.0400 #### [facility] [address] [place], [place], [address] T4 freeOrdered By: Courtney quinteros on 08-07-2024 Free T4 [Mass/Vol] 1.30 ng/dL 0.76-1.46 [facility] TSH DL <= 0.005 mIU/L QnOrde red By: Courtney Zavala on 08-07-2024 TSH Qn 0.722 uIU/mL 0.300-4.200 [facility] Thyroid Stim Hormone (TSH)on 08-07-2024 TSH 0.722 uIU/mL Normal 0.300-4.200 [facility] Comment on above: Performed By: #### L 501.42306, L501.9520, L506.0400 #### [facility] [address] [place], [place], [id number] Free T3on 06-07-2024 Free T3 [Mass/Vol] 2.9 pg/mL Normal 2.18-3.98 [facility] Comment on above: Order Comment: Comme nts: Pt last TSH was 0.5 1 year ago. Pt last TSH was 0.5 1 year ago. Performed By: #### L 501.14488, L501.9310, L501.9520 #### [facility] [address] [place], [place], [address] Free [id number] By: Anjel Chance on 06-07-2024 Free T3 [Mass/Vol] 2.9 pg/mL 2.18-3.98 [facility] T4 Total, Thyroxinon 025 T4 [Mass/Vol] 10.3 ug/dL Normal 4.8-13.9 [facility] Comment on above: Order Comment: Comme nts: Pt last TSH was 0.5 1 year ago. Performed By: #### L 501.09641, L501.9310, L501.9520 #### [facility] [address] [place], [address] TSH DL <= 0.005 mIU/L QnOrde red By: Anjel Chance on 06-07-2024 TSH Qn 0.214 uIU/mL Low 0.300-4.200 [facility] Thyroid Stim Hormone (TSH)on 06-07-2024 TSH 0.214 uIU/mL Low 0.300-4.200 [facility] Comment on above: Order Comment: Comme nts: Pt last TSH was 0.5 1 year ago. Performed By: #### L 501.78137, L501.9310, L501.9520 #### [facility] [address] [place], [address] ThyroxineOrdered By: Anjel Vargas on 06-07-2024 T4 [Mass/Vol] 10.3 ug/dL 4.8-13.9 [facility] Anion gap in Serum or Plasma Ordered By: Donald Cid on 05-25-2024 Anion gap [Moles/Vol] 13 mmol/L 5-15 [facility] BUN/creatinine ratioOrdered By: Donald Cid on 05-25-2024 Urea nitrogen/Creatinine [Mass ratio] 23.0 mg/mg High 10-20 [facility] Basic Metabolic Profile (BMP )on 05-25-2024 BUN/CRE 23.0 RATIO High 10-20 [facility] Comment on above: Performed By: #### L 500.2500 ####[facility] [address] [place], [address] Calcium [Mass/Vol] 10.0 mg/dL Normal 7.6-11.0 [facility] Comment on above: Performed By: #### L 500.2500 ####[facility] [address] [place], [address] Chloride [Moles/Vol] 103 mmol/L Normal 98-108 [facility] Comment on above: Performed By: #### L 500.2500 ####[facility] [address] [place], [address] CO2 [Moles/Vol] 26.9 mmol/L Normal 21.0-32.0 [facility] Comment on above: Performed By: #### L 500.2500 ####[facility] [address] [place], [address] Creatinine [Mass/Vol] 0.94 mg/dL Normal 0.70-1.20 [facility] Comment on above: Performed By: #### L 500.2500 ####[facility] [address] [place], [address] GAP 13 Normal 5-15 [facility] Comment on above: Performed By: #### L 500.2500 ####[facility] [address] [place], [address] GFR/1.73 sq M.predicted among non-blacks MDRD (S/P/Bld) [Vol rate/Area] 64 mL/min/{1.73_m2} Normal >60 [facility] Comment on above: Result Comment: mL/m in/1.73m2 CKD-EPI Creatinine Equation (2020) Performed By: #### L 500.2500 ####[facility] [address] [place], [address] Glucose [Mass/Vol] 102 mg/dL High 70-99 [facility] Comment on above: Performed By: #### L 500.2500 ####[facility] [address] [place], [address] Potassium [Moles/Vol] 4.1 mmol/L Normal 3.3-5.1 [facility] Comment on above: Performed By: #### L 500.2500 ####[facility] [address] [place], [address] Sodium [Moles/Vol] 143 mmol/L Normal 133-145 [facility] Comment on above: Performed By: #### L 500.2500 ####[facility] [address] [place], [address] Urea nitrogen [Mass/Vol] 22 mg/dL High 4-19 [facility] Comment on above: Performed By: #### L 500.2500 ####[facility] [address] [place], [address] Carbon dioxide, total [Moles /volume] in Central venous bloodOrdered By: Donald Cid on 05-25-2024 CO2 [Moles/Vol] 26.9 mmol/L 21.0-32.0 [facility] Chloride assayOrdered By: Monroe Cid on 05-25-2024 Chloride [Moles/Vol] 103 mmol/L 98-108 [facility] GFR/1.73 sq M.predicted roxane g non-blacks MDRD (S/P/Bld) [Vol rate/Area]Ordered By: Donald Cid on 05-25-2024 Estimated GFR (MDRD) Non-Af Amer 64 >60 [facility] Comment on above: mL/min/1.73m2 CKD-EP I Creatinine Equation (2020) Glomerular filtration rate ( GFR) estimation/1.73 sq m using serum, plasma, or whole bOrdered By: Donald Cid on 05-25-2024 GFR/1.73 sq M.predicted among non-blacks MDRD (S/P/Bld) [Vol rate/Area] 64 mL/min/{1.73_m2} >60 [facility] Comment on above: mL/min/1.73m2 CKD-EP I Creatinine Equation (2020) Office Visit Reporton 2024 Office Visit Report [facility] [address] [place] [address] OFFICE VISIT Date of Service: 05/25/24 MR#: [id number] Acct: [id number] Patient: CELESTINA SERRANO Rep #: [id number] : 1950 Provider: Dr. Donald Cid MD Age/Sex: 74/F Location: [facility] Status: Signed Intake Vital Signs 05/15/24 12:57 [...] Cosigner Signature: Date (if applicable) CC: Normal [facility] Potassium (Unsp spec) [Mass/ Vol]Ordered By: Donald Cid on 05-25-2024 Potassium [Moles/Vol] 4.1 mmol/L 3.3-5.1 [facility] Potassium measurement (mass/ volume)Ordered By: Donald Cid on 05-25-2024 Potassium (Unsp spec) [Mass/Vol] 4.1 mmol/L 3.3-5.1 [facility] Serum creatinine measurement (mass/volume)Ordered By: Donald Cid on 05-25-2024 Creatinine [Mass/Vol] 0.94 mg/dL 0.70-1.20 [facility] Serum glucose measurement (m ass/volume)Ordered By: Donald Cid on 05-25-2024 Glucose [Mass/Vol] 102 mg/dL High 70-99 [facility] Serum or plasma calcium hannah urement (mass/volume)Ordered By: Donald Cid on 05-25-2024 Calcium [Mass/Vol] 10.0 mg/dL 7.6-11.0 [facility] Serum or plasma urea nitroge n measurement (mass/volume)Ordered By: Donald Cid on 05-25-2024 Urea nitrogen [Mass/Vol] 22 mg/dL High 4-19 [facility] Sodium levelOrdered By: Marcelino Cid on 05-25-2024 Sodium [Moles/Vol] 143 mmol/L 133-145 [facility] Echo Completeon 05-23-2024 Echo Complete [facility] [address] [place] [address] Echo Complete 05/23/24 0659 MR#: [id number] Acct: [id number] Name: CELESTINA SERRANO Rep #: [id number] : 1950 74 From: Donald Cid MD Attending Dr: Dr. Donald Cid MD Status: REG CLI Ordering Dr: Donald Cid MD Date: 05/23/24 Location: [facility] Sex: F C Admitted: Reason For Study [...] Physician: Jolie Norman Performed By: Hansa Zendejas, CHARITYCS, RVT 05/23/24834 Date Donald Cid MD CC: Dr. Jolie Norman MD; Dr. Donald Cid MD Date Dictated: 05/23/2459 Date Transcribed: 05/23/24834 Hack Driver: Signed Normal [facility] Echocardiogram study reportO rdered By: Donald Cid on 05-23-2024 Study report [facility] [address] [place] [address] Echo Complete 05/23/24 0659 MR#: [id number] Acct: [id number] Name: CELESTINA SERRANO Rep #:[id number] : 1950 74 From: Donald Cid MD Attending Dr: Dr. Donald Cid MD Status: REG CLI Ordering Dr: Donald Cid MD Date: Location: [facility] Sex: F C Admitted: Reason For Study [...] Norman Performed By: Hansa Zendejas, MEAGAN, RVT 05/23/24 0835 Date _ Donald Cid MD CC: Dr. Jolie Norman MD; Dr. Donald Cid MD ~ Date Dictated: 05/23/2459 Date Transcribed: 05/23/24834 Hack Driver: Signed [facility] Work Phone: Cardiology Visit Reporton Cardiology Visit Report [facility] [address] [place] [address] OFFICE VISIT Date of Service: 05/15/24 MR#: [id number] Acct: [id number] Name: CELESTINA SERRANO Rep #: [id number] : 1950 Provider: Dr. Donald Cid MD Age/Sex: 74/F Location: [facility] Status: Signed HPI HPI History of [...] DOMINANCE: Right (more content not included)... Normal [facility] Breast imaging reportOrdered By: Binta Squires on 05-10-2024 Study report [facility] Imaging Services [address] [place] [address] SCRN MAMM (CAD)W/YOLI BILAT MR#: [id number] Acct: [id number] Name: CELESTINA SERRANO Rep #: [id number] : 1950 F 73 From: Kenny Squires DO PCP: Dr. Jolie Norman MD Status: REG CLI Study:SCRN MAMM (CAD)W/YOLI BILAT Date of Exa m: 05/09/24 Exam# [id number] Ordering Dr: Jolie Norman MD EXAM: SCRN [...] be mailed to the patient. Reading Location[facility] CC: Dr. Jolie Norman MD ~ Hack Driver: Signed [facility] SCRN MAMM (CAD)W/YOLI BILATo n 05-09-2024 SCRN MAMM (CAD)W/YOLI BILAT [facility] Imaging Services [address] [place] [address] SCRN MAMM (CAD)W/YOLI BILAT MR#: [id number] Acct: [id number] Name: CELESTINA SERRANO Rep #: [id number] : 1950 F 73 From: Binta Rivas PCP: Dr. Jolie Norman MD Status: [facility] CLI Study: SCRN MAMM (CAD)W/YOLI BILAT Date of Exam: 04/15 08/08 Exam# [id number] Ordering Dr: Jolie Norman MD EXAM: SCRN [...] be mailed to the patient. Reading Location: [id number] CC: Dr. Jolie Norman MD Hack Driver: Signed Normal [facility] Cardiology Visit Reporton Cardiology Visit Report [facility] [place] [address] OFFICE VISIT Date of Service: 11/08/23 MR#: [id number] Acct: [id number] Name: CELESTINA SERRANO Rep #: [id number] : 1950 Provider: Dr. Donald Cid MD Age/Sex: 73/F Location: [facility] Status: Signed HPI [facility] History of Present Illness Details: This lady [...] 11/28/2018 CONC (more content not included)... Normal [facility] Basophil percentageOrdered B y: Jolie Norman on 12-28-2022 Chloride [Moles/Vol] 106 mmol/L 98-107 [facility] Cholesterol [Mass/Vol] 179 mg/dL <200 [facility] Comment on above: <200 mg/dL Desirable 200-240 mg/dL Borderline >240 mg/dL High Risk Glucose [Mass/Vol] 87 mg/dL 74-106 [facility] Potassium [Moles/Vol] 4.0 mmol/L 3.5-5.1 [facility] Sodium [Moles/Vol] 140 mmol/L 136-145 [facility] Triglyceride [Mass/Vol] 195 mg/dL <199 [facility] Comment on above: The drugs N-Acetylcy steine and Metamizole may falsely depress this assay.Serum Triglycerides Reference Interval Normal <150 mg/dL Borderline high 150 - 199 mg/dL High 200 - 499 mg/dL Very High > or = 500 mg/dL Laboratory - Chemistry and C hemistry - challengeOrdered By: Jolie Norman on 12-28-2022 ALT [Catalytic activity/Vol] 30 U/L 13-56 [facility] CO2 [Moles/Vol] 31.0 mmol/L 21.0-32.0 [facility] T4 [Mass/Vol] 13.5 ug/dL 4.8-13.9 [facility] Urea nitrogen/Creatinine [Mass ratio] 23.2 mg/mg 10-20 [facility] No Panel InformationOrdered By: Jolie Norman on 12-28-2022 Estimated GFR (MDRD) Amer 79 mL/min >60 [facility] Comment on above: GFR Calc Estimated GFR (MDRD) Non-Af Amer 65 mL/min >60 [facility] Comment on above: Non- GFR Calc Thyroid Stimulating Hormone (TSH) 0.60 uIU/mL 0.358-3.74 [facility] Vitamin D 25-Hydroxy 82.3 ng/mL [facility] Comment on above: Vitamin D 25(OH) Sta tus Range Deficiency <20 ng/mL (50nmol/L) Insufficiency 20 - 30 ng/mL (50 - 75 nmol/L) Sufficiency 30 - 100 ng/mL (75 - 250 nmol/L) Toxicity >100 ng/mL (>250 nmol/L) Serum or plasma calcium hannah urement (mass/volume)Ordered By: Jolie Norman on 12-28-2022 Calcium [Mass/Vol] 9.3 mg/dL 8.5-10.1 [facility] Serum or plasma cholesterol in HDL measurement (mass/volume)Ordered By: Jolie Norman on 12-28-2022 Cholesterol in HDL [Mass/Vol] 44 mg/dL >40 [facility] Comment on above: The drugs N-Acetylcy steine and Metamizole may falsely depress this assay. Reference Range HDL <40 mg/dL Low HDL Cholesterol HDL >or= 60 mg/dL High HDL Cholesterol Serum or plasma cholesterol in VLDL measurement (mass/volume)Ordered By: Jolie Norman on 12-28-2022 Cholesterol in VLDL [Mass/Vol] 39 mg/dL 5-40 [facility] Serum or plasma creatinine m easurement (mass/volume)Ordered By: Jolie Norman on 12-28-2022 Creatinine [Mass/Vol] 0.91 mg/dL 0.55-1.02 [facility] Comment on above: The validity of the calculated GFR & GFRAA in patients over 70 years has not been determined. Clinical correlation is essential. Serum or plasma low density lipoprotein (LDL) cholesterol measurement (mass/volume)Ordered By: Jolie Norman on 12-28-2022 Cholesterol in LDL [Mass/Vol] 96 mg/dL 0-130 [facility] Serum or plasma urea nitroge n measurement (mass/volume)Ordered By: Jolie Norman on 12-28-2022 Urea nitrogen [Mass/Vol] 21 mg/dL 7-18 [facility] Thin prep Papanicolaou smear with manual screeningOrdered By: Jolie Norman on 12-28-2022 Thin prep Papanicolaou smear with manual screening 19 U/L 15-37 [facility] Thin prep Papanicolaou smear with manual screening 3 5-15 [facility] Basophil percentageOrdered B y: Dr. Norman on 12-22-2021 Chloride [Moles/Vol] 105 mmol/L 98-107 [facility] Cholesterol [Mass/Vol] 172 mg/dL <200 [facility] Comment on above: <200 mg/dL Desirable 200-240 mg/dL Borderline >240 mg/dL High Risk Glucose [Mass/Vol] 89 mg/dL 74-106 [facility] Potassium [Moles/Vol] 4.2 mmol/L 3.5-5.1 [facility] Sodium [Moles/Vol] 139 mmol/L 136-145 [facility] Triglyceride [Mass/Vol] 219 mg/dL <199 [facility] Comment on above: The drugs N-Acetylcy steine and Metamizole may falsely depress this assay.Serum Triglycerides Reference Interval Normal <150 mg/dL Borderline high 150 - 199 mg/dL High 200 - 499 mg/dL Very High > or = 500 mg/dL Laboratory - Chemistry and C hemistry - challengeOrdered By: Dr. Norman on 12-22-2021 ALT [Catalytic activity/Vol] 28 U/L 13-56 [facility] CO2 [Moles/Vol] 29.0 mmol/L 21.0-32.0 [facility] T4 [Mass/Vol] 12.6 ug/dL 4.8-13.9 [facility] Urea nitrogen/Creatinine [Mass ratio] 20.8 mg/mg 10-20 [facility] No Panel InformationOrdered By: Dr. Norman on 12-22-2021 Estimated GFR (MDRD) Amer 83 mL/min >60 [facility] Comment on above: GFR Calc Estimated GFR (MDRD) Non-Af Amer 69 mL/min >60 [facility] Comment on above: Non- GFR Calc Thyroid Stimulating Hormone (TSH) 0.75 uIU/mL 0.358-3.74 [facility] Vitamin D 25-Hydroxy 71.1 ng/mL [facility] Comment on above: Vitamin D 25(OH) Sta tus Range Deficiency <20 ng/mL (50nmol/L) Insufficiency 20 - 30 ng/mL (50 - 75 nmol/L) Sufficiency 30 - 100 ng/mL (75 - 250 nmol/L) Toxicity >100 ng/mL (>250 nmol/L) Serum or plasma calcium hannah urement (mass/volume)Ordered By: Dr. Norman on 12-22-2021 Calcium [Mass/Vol] 9.3 mg/dL 8.5-10.1 [facility] Serum or plasma cholesterol in HDL measurement (mass/volume)Ordered By: Dr. Norman on 12-22-2021 Cholesterol in HDL [Mass/Vol] 42 mg/dL >40 [facility] Comment on above: The drugs N-Acetylcy steine and Metamizole may falsely depress this assay. Reference Range HDL <40 mg/dL Low HDL Cholesterol HDL >or= 60 mg/dL High HDL Cholesterol Serum or plasma cholesterol in VLDL measurement (mass/volume)Ordered By: Dr. Norman on 12-22-2021 Cholesterol in VLDL [Mass/Vol] 44 mg/dL 5-40 [facility] Serum or plasma creatinine m easurement (mass/volume)Ordered By: Dr. Norman on 12-22-2021 Creatinine [Mass/Vol] 0.86 mg/dL 0.55-1.02 [facility] Comment on above: The validity of the calculated GFR & GFRAA in patients over 70 years has not been determined. Clinical correlation is essential. Serum or plasma low density lipoprotein (LDL) cholesterol measurement (mass/volume)Ordered By: Dr. Norman on 12-22-2021 Cholesterol in LDL [Mass/Vol] 86 mg/dL 0-130 [facility] Serum or plasma urea nitroge n measurement (mass/volume)Ordered By: Dr. Norman on 12-22-2021 Urea nitrogen [Mass/Vol] 18 mg/dL 7-18 [facility] Thin prep Papanicolaou smear with manual screeningOrdered By: Dr. Norman on 12-22-2021 Thin prep Papanicolaou smear with manual screening 21 U/L 15-37 [facility] Thin prep Papanicolaou smear with manual screening 5 5-15 [facility] CNOVon 04-02-2020 CNOV Office Visit (PODIWS ) CELESTINA SERRANO ([id number]) 1950 F Date Time Provider Department 04/02/20 2:40 PM JARRETT MIDDLETON During your visit today, we recorded the [...] good color (more content not included)... Normal [facility] Vital Signs Date Time Vital Sign Value Performing Clinician Lj marsh 05-15-2024 12:57-0400 Body mass index (BMI) [Ratio] 38.9 kg/m2 Dr. Jolie Norman MD Work Phone: [facility] 05-15-2024 12:57-0400 Body weight 87.[address] Jolie Norman MD Work Phone: [facility] 05-15-2024 12:57-0400 Diastolic blood pressure 71 mm[Hg] Dr. Jolie Norman MD Work Phone: [facility] 05-15-2024 12:57-0400 Heart rate 74 /min Dr. Jolie Norman MD Work Phone: [facility] 05-15-2024 12:57-0400 Respiratory rate 18 /min Dr. Jolie Norman MD Work Phone: [facility] 05-15-2024 12:57-0400 Systolic blood pressure 139 mm[Hg] Dr. Jolie Norman MD Work Phone: [facility] 11-08-2022 10:40-0400 Body height 149.[address] Jolie Norman Work Phone: [facility] 11-08-2022 10:40-0400 Body mass index (BMI) [Ratio] 37.5 kg/m2 Dr. Jolie Norman Work Phone: [facility] 11-08-2022 10:40-0400 Body weight 84.[address] Jolie Norman Work Phone: [facility] 11-08-2022 10:40-0400 Diastolic blood pressure 73 mm[Hg] Dr. Jolie Norman Work Phone: [facility] 11-08-2022 10:40-0400 Heart rate 61 /min Dr. Jolie Norman Work Phone: [facility] 11-08-2022 10:40-0400 Respiratory rate 18 /min Dr. Jolie Norman Work Phone: [facility] 11-08-2022 10:40-0400 SaO2% (BldA) [Mass fraction] 98 % Dr. Jolie Norman Work Phone: [facility] 11-08-2022 10:40-0400 Systolic blood pressure 134 mm[Hg] Dr. Jolie Norman Work Phone: [facility] 08-31-2021 11:36-0400 Body height 149.[address] Jolie Norman Work Phone: [facility] Work Phone: 08-31-2021 11:36-0400 Body mass index (BMI) [Ratio] 36.3 kg/m2 Dr. Jolie Norman Work Phone: [facility] Work Phone: 08-31-2021 11:36-0400 Body weight 81.[address] Jolie Norman Work Phone: [facility] Work Phone: 08-31-2021 11:36-0400 Diastolic blood pressure 63 mm[Hg] Dr. Jolie Norman Work Phone: [facility] Work Phone: 08-31-2021 11:36-0400 Heart rate 70 /min Dr. Jolie Norman Work Phone: [facility] Work Phone: 08-31-2021 11:36-0400 Respiratory rate 18 /min Dr. Jolie Norman Work Phone: [facility] Work Phone: 08-31-2021 11:36-0400 Systolic blood pressure 105 mm[Hg] Dr. Jolie Norman Work Phone: [facility] Work Phone: Encounters Encounter Date Encounter Type Care Provider Facility Start: 08-07-2024 End: 08-07-[address] Jolie Norman MD Work Phone: [facility] [place] Start: 08-07-2024 End: 08-07-[address] Courtney Zavala DO -[facility] [place] Work Phone: Start: 08-07-2024 End: 08-07-2024 ambulatory Courtney Zavala Facility:[facility] Start: 06-07-2024 End: 06-07-2024 Patient encounter procedure Anjel Osvaldo Meron TROTTER -Laboratory Work Phone: Start: 06-07-2024 End: 06-07-2024 ambulatory Jolie Norman Facility:[facility] Start: 05-25-2024 End: 05-25-[address] Donald Cid MD -Laboratory Work Phone: Start: 05-25-2024 End: 05-25-[address] Jolie Norman MD Work Phone: [facility] Work Phone: Start: 05-25-2024 End: 05-25-2024 ambulatory Jolie Norman Facility:[facility] Start: 05-23-2024 Non-patient / Non-visit Dr. Donald gillis MD -[facility] Start: 05-23-2024 End: 05-23-[address] Jolie Norman MD Work Phone: [facility] Work Phone: Start: 05-23-2024 End: 05-23-[address] Donald Cid MD -[facility] Work Phone: Start: 05-23-2024 End: 05-23-2024 ambulatory Donald Cid Facility:[facility] Start: 05-15-2024 End: 05-15-[address] Donald Cid MD -[facility] Work Phone: Start: 05-15-2024 End: 05-15-2024 ambulatory Donald Hedy Facility:[facility] Start: 05-09-2024 End: 05-09-[address] Jolie Norman MD Work Phone: [facility] Work Phone: Start: 05-09-2024 End: 05-09-[address] Jolie Norman MD -Outpatient [facility] Work Phone: Start: 05-09-2024 End: 05-09-2024 ambulatory Jolie Norman Facility:[facility] Start: 11-08-2023 End: 11-08-2023 ambulatory [facility] Facility:[facility] Start: 05-09-2023 End: 05-09-2023 ambulatory [facility] Work Phone: Start: 05-09-2023 End: 05-09-2023 Patient encounter procedure [facility] Work Phone: Start: 12-28-2022 End: 12-28-[address] Jolie Norman Work Phone: [facility] Work Phone: Start: 12-28-2022 End: 12-28-[address] Jolie Norman Work Phone: [facility] Start: 11-08-2022 End: 11-08-[address] Jolie Norman Work Phone: [facility] Work Phone: Start: 04-15-2022 End: 04-15-2022 ambulatory [facility] Work Phone: Start: 04-15-2022 End: 04-15-2022 Patient encounter procedure [facility] Start: 12-22-2021 End: 12-22-[address] Jolie Norman Work Phone: [facility] Work Phone: Start: 12-22-2021 End: 11-08-[address] Jolie Norman Work Phone: [facility] Start: 08-31-2021 End: 08-31-[address] Jolie Norman Work Phone: [facility] Procedures Date Procedure Procedure Detail Performing Clinician Start: 05-09-2024 Screening mammography Dylon Norman MD Work Phone: Start: 05-09-2023 Screening mammography Start: 04-15-2022 Screening mammography Plan of Treatment Date Care Activity Detail Author Patient referral [facility] Work Phone: Payers Date Payer Category Payer Medicare [id number] 2023 Private Health Insurance CLI [id number] 2023 Self-pay [id number] Medicare MEDICARE PART A B [id number] Unknown [id number] Unknown [id number] Unknown [id number] Unknown [id number] Unknown [id number] Unknown [id number] Unknown [id number] Unknown [id number] Unknown [id number] Unknown [id number] Social History Date Type Detail Facility Start: 08-31-2021 End: 11-08-2022 Tobacco smoking status NHIS Unknown if ever smoked [facility] Start: 1950 Sex Assigned At Female [facility] Start: 11-08-2022 Tobacco smoking stat us NHIS Never smoked tobacco (finding) [facility] Start: 2024 End: 05-30-2024 Sex Female (finding) [facility] Evaluation note 05-15-2024 Note Date & Type Note Facility 05-15-2024 Evaluation note Diagnosis Onset Date Resolution Bilateral lower extremity edema chronic May 15, 2024 12:57pm Dyslipidemia chronic May 15, 2 025 12:57pm Essential hypertension chronic Ap 2024 12:57pm Palpitations resolved May 15, 2 025 12:57pm [facility] Work Phone: Progress note 04-02-2020 Note Date & Type Note Facility 04-02-2020 Note HNO ID: [id number] Author: Jarrett Middleton Service: ? Author Type: [...] of thick discolored toenails. PAIN EVALUATION 04/02/2020 7767 Pain Level: 8 Pain Location: Other: See [...] including fungus, yeas (more content not included)... [facility] Progress note 04-02-2020 Note Date & Type Note Facility 04-02-2020 Note HNO ID: [id number] Author: Sandra Cortes Ma Service: ? Author [...] since 03/02/20 No documented travel since 03/02/20 [facility] Evaluation note Note Date & Type Note Facility Evaluation note Diagnosis Onset Date Essential hypertension chron ic Hyperlipidemia chronic Premature atrial contractions chronic Premature ventricular contraction chronic [facility] Work Phone: Evaluation note Note Date & Type Note Facility Evaluation note No assessment information availa ble [facility] Work Phone: Reason for referral (narrative) Note Date & Type Note Facility Reason for referral (narrative) No reason for referral information available [facility] Work Phone: Summary Purpose Family History No Family History Records Found Relationship Condition Age at Onset Recorded Date/T mary mother Cerebrovascular accident (CVA) Unknown brother Hypertension Unknown Advance Directives No Advanced Directives Records Found Advance Directive Response Recorded Date/ Time Advance Directives Yes November 28, 2018 9:16am Living Will Yes November 28 9:16am Power of Luster Applicator Yes November 28, 2018 9:16am Advance Directive Response Recorded Date/ Time Advance Directives Yes November 28, 2018 10:16am Living Will Yes November 28 10:16am Power of Luster Applicator Yes November 28, 2018 10:16am Advance Directive [...] section and content) DATE CREATED AUTHOR 03/13/2021 [facility] DATE CREATED AUTHOR AUTHOR'S ORGANIZ ATION 08/14/2024 [facility] Goals (unrecognized section and content) Goals [...] Inactive Member Role Status Dates Dr. Jolie Nomran MD Primary Care Provider, Referrin g Provider Active Anjel Chance [employer] PRODUCT MANAGER, BIODIESEL PRODUCT MANAGER-C Attending Provider Active Team Status: Active Member [...] May 25, 2024 Team Status: Active Member Role/Relationship Status Dates Dr. Courtney Zavala DO Primary Care Provider Active Team Status: Inactive Member Role/Relationship Status Dates Dr. Jolie Norman MD Primary Care Provider Active Start: May 09, 2024 End: May 09, 2024 Dr. Jolie Norman MD Attending Provider Active Start: May 09, 2024 End: May 09, 2024 Dr. Jolie Norman MD Referring Provider Active Start: May 09, 2024 End: May 09, 2024 Team Status: Inactive Member Role/Relationship Status Dates Dr. Jolie Norman MD Primary Care Provider Active Start: May 15, 2024 End: May 15, 2024 Dr. Jolie Norman MD Referring Provider Active Start: May 15, 2024 End: May 15, 2024 Dr. Donald Cid MD Attending Provider Active Start: May 15, 2024 End: May 15, 2024 Team Status: Inactive Member Role/Relationship Status Dates Dr. Jolie Norman MD Primary Care Provider Active Start: May 23, 2024 End: May 23, 2024 Dr. Donald Cid MD Attending Provider Active Start: May 23, 2024 End: May 23, 2024 Dr. Donald Cid MD Referring Provider Active Start: May 23, 2024 End: May 23, 2024 Team Status: Active Member Role/Relationship Status Dates Dr. Jolie Norman MD Primary Care Provider Active Start: May 23, 2024 Dr. Donald Cid MD Attending Provider Active Start: May 23, 2024 Team Status: Inactive Member Role/Relationship Status Dates Dr. Jolie Norman MD Primary Care Provider Active Start: May 25, 2024 End: May 25, 2024 Dr. Jolie Norman MD Referring Provider Active Start: May 25, 2024 End: May 25, 2024 Dr. Donald Cid MD Attending Provider Active Start: May 25, 2024 End: May 25, 2024 Team Status: Inactive Member Role/Relationship Status Dates Dr. Jolie Norman MD Primary Care Provider Active Start: May 25, 2024 End: May 25, 2024 Dr. Donald Cid MD Attending Provider Active Start: May 25, 2024 End: May 25, 2024 Dr. Donald Cid MD Referring Provider Active Start: May 25, 2024 End: May 25, 2024 Team Status: Inactive Member Role/Relationship Status Dates Dr. Jolie Norman MD Primary Care Provider Active Start: June 07, 2024 End: June 07, 2024 Anjel Chance BIODIESEL PRODUCT MANAGER, BIODIESEL PRODUCT MANAGER-C Attending Provider Active S tart: June 07, 2024 End: June 07, 2024 Anjel Chance NP, [employer]EL PRODUCT MANAGER-C Referring Provider Active S tart: June 07, 2024 End: June 07, 2024 Team Status: Inactive Member Role/Relationship Status Dates Dr. Courtney Zavala DO Primary Care Provider Active Start: August 07, 2024 End: August 07, 2024 Dr. Courtney Zavala DO Attending Provider Active St art: August 07, 2024 End: August 07, 2024 Dr. Courtney Zavala DO Referring Provider Active St art: August 07, 2024 End: August 07, 2024 FOR RECORDS PERTAINING TO PATIENTS WHO [...] BE BASED ON THE PRIMARY CLINICAL RECORDS. [facility] [employer] provides no warranty or guarantee of the accuracy or completeness of information in this document.
== END | disposition home or self-care (01) ==
LOC: BFHLAB 09:16
PROVIDERS: PCP Family Medicine; Visit Provider Nurse Practitioner Family
DX: T14.8XXA Other injury of unspecified body region, initial encounter (principal); W57.XXXA Bitten or stung by nonvenomous insect and other nonvenomous arthropods, initial encounter
CPT/HCPCS: 36415; 86617

== ENCOUNTER → 2024-10-25 | Outpatient (CLI) | payer MEDICARE, OTHER, SELFPAY | END | disposition home or self-care (01) | LOC: BFHLAB 13:36 | PROVIDERS: PCP Family Medicine; Visit Provider Family Medicine | DX: T14.8XXA Other injury of unspecified body region, initial encounter (principal); W57.XXXA Bitten or stung by nonvenomous insect and other nonvenomous arthropods, initial encounter | CPT/HCPCS: 36415; 86617 ==

== ENCOUNTER → 2024-12-17 | Outpatient (CLI) | payer MEDICARE, OTHER, SELFPAY ==
[2024-12-17 17:35] LABS: Hematocrit 39.7 % (37-47); Hemoglobin 12.3 g/dL (12.0-15.0); Immature Granulocytes Count 0.030 X10^3/uL (0.0-0.0); Mean Corp Hgb Conc 31.0 g/dL (32-36); Mean Corpuscular Volume 89.8 fL (81-99); Mean Platelet Vol. 9.7 fl (6.2-12.0); NRBC Flagged by Analyzer 0 % (0-5); Platelet Count 404 K/mm3 (150-450); RBC Distribution Width CV 14.5 % (11.6-14.6); RBC Distribution Width SD 47.7 fl (35.1-43.9); Red Blood Count 4.42 M/mm3 (4.2-5.4); White Blood Count 9.8 K/mm3 (4.4-11.0)
[2024-12-17 18:17] LABS: AST(SGOT) 29 U/L (<=31); Alanine Aminotransfer ALT/SGPT 23 U/L (<=34); Albumin, Serum 4.0 g/dL (3.4-4.8); Alkaline Phosphatase 99 U/L (35-104); Anion Gap 12 (5-15); BUN 21 mg/dL (4-19); BUN/Creat Ratio 25.1 RATIO (10-20); Calcium,Total 9.7 mg/dL (7.6-11.0); Carbon Dioxide 25.8 mmol/L (21.0-32.0); Chloride 102 mmol/L (98-108); Free T3 3.0 pg/mL (2.18-3.98); Globulin 3.4 g/dL (2.2-4.2); Glucose 86 mg/dL (70-99); Potassium 4.2 mmol/L (3.3-5.1)
[2024-12-17 19:16] LABS: AST(SGOT) 30 U/L (<=31); Alanine Aminotransfer ALT/SGPT 24 U/L (<=34); Albumin, Serum 4.0 g/dL (3.4-4.8); Alkaline Phosphatase 97 U/L (35-104); Bilirubin, Direct 0.15 mg/dL (0.00-0.30); Cholesterol 210 mg/dL (<=200); Globulin 3.6 g/dL (2.2-4.2); Low Density Lipoprotein Calc. 130 mg/dL; Triglycerides 228 mg/dL; Very Low Density Lipoprotein 46 mg/dL (5-40); cholesterol:hdl ratio screen 5.29
== END | disposition home or self-care (01) ==
LOC: BFHLAB 14:39
PROVIDERS: Student in an Organized Health Care Education/Training Program; PCP Family Medicine; Visit Provider Family Medicine
DX: Z51.81 Encounter for therapeutic drug level monitoring (principal); I10 Essential (primary) hypertension; E03.9 Hypothyroidism, unspecified; E78.5 Hyperlipidemia, unspecified; R73.01 Impaired fasting glucose
CPT/HCPCS: 36415; 80053; 80061; 80076; 83036; 84439; 84443; 84481; 85025; 86617